=== PATIENT | female | born 1955 | race Caucasian/White ===

== ENCOUNTER 2020-03-16 10:15 | Observation (INO) | payer MEDICARE, SELFPAY ==
[2020-03-15 17:08] VITALS: BMI 28.0
[2020-03-16] VITALS (16 sets, daily range): BP systolic 91–138; BP diastolic 46–74; PULSE 73–114; RESP 14–18; TEMP 36.1–36.6; O2SAT 93–100
--- NOTE | 2020-03-16 06:13 | ANES.PREANE2 ---
Pre-Anesthetic Assessment Pre-Anesthetic Assessment: Height/Weight: Height 1.6 m Weight 71.668 kg Preop Diagnosis: Intervertebral disc disorder with myelopathy, midcervical Proposed Procedure: Operation Date: 03/16/20 07:00 Proposed Procedures p Anterior Cervical Discecotmy&Fusion 2Lev C3-C4 C5-C6 69235 M50.020(Not Applicable) - Doug Robin MD Was Beta Yuridia taken within 24 hours: N/A Last intake: Intake Last Liquid Date 03/15/20 Last Liquid Time 22:00 Last Solid Date 03/15/20 Last Solid Time 19:00 Social: Social History: No alcohol and No tobacco Exam: Pre-Anes Outpt Exam: alert, oriented x 3, clear to auscultation bilaterally and regular rate & rhythm Airway: Submandibular: WNL Cervical ROM: WNL MP: 2 Dentition: Chipped Additional comments: glidescope History/ROS: No significant history except as noted Anesthetic Plan: ASA status: 2 Anesthesia: Anesthesia Evaluation and General Risk of > 500 ml blood loss (7ml/kg in children): Yes, adequate IV access and fluids planned PFSH Anesthesia PFSH: Social History (Updated 01/17/20 @ 11:48 by Shannon Santos LPN) Smoking and tobacco status: never smoked Alcohol intake: never Lives independently: Yes Household members: spouse Marital status: Current occupational status: disabled Data Anesthesia Cardiac Studies: No Data to Display
[2020-03-16] MEDS: sodium chloride 0.9% 1,000 ML 30 ML IV (06:28)
--- NOTE | 2020-03-16 06:52 | W.PM.OPSUD ---
Surgery/Procedure H&P Update DATE OF PROCEDURE: March 16, 2020 DATE H&P PERFORMED: 03/15/20 H&P UPDATE INFORMATION: I have reviewed H&P completed within last 30 days and H&P to be scanned into chart PREOP DIAGNOSIS: Intervertebral disc disorder with myelopathy, midcervical PRIMARY INDICATION FOR PROCEDURE: Pain PLANNED PROCEDURE: Operation Date: 03/16/20 07:00 Proposed Procedures Anterior Cervical Discectomy/Fusion/Fixation, C3-C4 and C5-C6 71283 M50.020(Not Applicable) - Doug Robin MD
--- NOTE | 2020-03-16 07:04 | PM.OP2 ---
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
--- NOTE | 2020-03-16 07:16 | XR_ITS ---
WS: [id number] XR cervical spine 1Vport [id number] REASON FOR EXAM: SURGERY FINDINGS: Intraoperative a pointer is seen directed toward the C3-4 level anteriorly. Endotracheal tu be is seen in good position. XR/XR cervical spine 1Vport [id number] IMPRESSION: Anterior pointers directed toward the C3-4 level anteriorly.
[2020-03-16] MEDS: thrombin 5,000 unit SDV 5000 UNIT XX (07:45)
--- NOTE | 2020-03-16 07:48 | XR_ITS ---
WS: [id number] XR cervical spine 1Vport [id number] REASON FOR EXAM: SURGERY FINDINGS: Intraoperative a pointer seen in the disc space C4-C5. Satisfactory position. XR/XR cervical spine 1Vport [id number] IMPRESSION: Localization C4-C5 anterior disc space.
--- NOTE | 2020-03-16 08:58 | SUR.OPER ---
Family Notified Of Patient's Status Via Phone.
--- NOTE | 2020-03-16 10:08 | XR_ITS ---
WS: [id number] XR cervical spine 3V* [id number] REASON FOR EXAM: AP/LAT Post op Fusion FINDINGS: Postop evaluation shows anterior fusion with a plate extending from the C3-C4-C5 level with intraspinal fusion satisfactory alignment. XR/XR cervical spine 3V* [id number] IMPRESSION: Satisfactory anterior fusion C3-C4-C5 with intraspinal fusion.
[2020-03-16] MEDS: ondansetron 2 mg/ML SDV 2 mL 4 MG IVP (11:19)
[2020-03-16] MEDS: lactated ringers 1,000 ML 90 ML IV (13:39)
--- NOTE | 2020-03-16 15:31 | P.OP_ITS ---
Operative Report Date of procedure: March 16, 2020 Pre-op Diagnosis: Intervertebral disc disorder with myelopathy, midcervical Pre-op Diagnosis: Spondylolisthesis Post-op diagnosis: same (with instability of joint) Procedure Done: C3-C4, C4-C5 anterior cervical discectomy with osteophytectomy. C3-C4, C4-C5 anterior cervical plate/screw fixation. C3-C4, C4-C5 placement of intervertebral prosthetic devices. C3-C4, C4-C5 anterior cervical fusion utilizing morselized autograft. Implants: Synthes Vectra plate/screw system. DePuy Synthes ACIS ProTi Spacers. [place] King moldable demineralized fibers. Specimens removed/disposition: C3-C4, C4-C5 disc. Pathology: Disc fragments Surgeon: Doug Robin Anesthesia: General Estimated blood loss (mL): 50 IV fluids (mL): 1,300 Urine output (mL): 50 Complications: None Condition: stable Disposition: PACU Brief History: The patient is a 64-year-old female with symptomatic, radiographically confirmed cervical disc/joint disease, spondylolisthesis, and associated neural impingement. Imaging studies demonstrated dominant abnormalities at C3-C4 and C4-C5. Conservative management did not provide adequate lasting symptom relief. After review of the diagnostic and treatment options with the risks/potential benefits/rationale for each, the patient requested to proceed with surgical intervention. Procedure: After routine preoperative evaluation and informed consent were obtained, the patient was taken to the Operating Room and placed under general endotracheal anesthesia. She was positioned supine and fit in the [place] tongs for the application of in-line cervical traction. The anterolateral neck on the left was prepared with hair clippers. A proposed transverse skin incision was marked with a sterile skin marker, utilizing intraoperative radiography and regional anatomy for localization. The area was scrubbed with Betadine, prepped with DuraPrep, and draped with sterile towels and drapes. [place] surgical barrier was applied. The proposed incision site was infiltrated with 1% Xylocaine with Epinephrine. A skin incision was made and carried down into the subcutaneous tissues. The platysma was identified and divided in the direction of its fibers. A plane was dissected just medial to the carotid sheath and lateral to the midline esophagus and trachea. Prevertebral soft tissues were bluntly dissected free of the anterior margin of the cervical spine. Longus coli muscles were freed from their medial attachments. Deep self-retaining retractors were placed. Intraoperative radiography verified the desired surgical levels. The C3-C4 and C4-C5 interspaces were sequentially incised with a #11 blade. Discectomies were accomplished utilizing various curettes and pituitary rongeurs. Anterior marginal osteophytes were resected with the [place] and [place] rongeurs. Cartilaginous end plates were stripped free with curettes. Posterior marginal osteophytes were resected with thin foot plate Kerrison rongeurs. The medial aspects of the neural foramina were enlarged in a similar manner. Posterior longitudinal ligament was divided and resected as necessary to further the decompression. Due to collapse/extensive bony overgrowth of the C3-C4 disc space and marginal osteophyte contribution to neural impingement, the Via6 high- speed drill with serina margarito was utilized for endplate preparation and to complete the osteophytectomy portions of the procedure. Once the decompressions were felt to be adequate at both levels, the disc spaces were sized. An 8 mm ACIS ProTi lordotic/medium Spacer was chosen for C3-C4. A 7 mm ACIS ProTi lordotic/medium Spacer was chosen for C4-C5. The Spacers were packed with morselized autograft obtained from the osteophytectomy portions of the procedure augmented with Eureka King moldable demineralized fibers. The Spacers were sequentially placed within the C3-C4 and C4-C5 interspaces while in-line cervical traction was applied via the [place] tongs. Once the Spacers were felt to be in good position, a Synthes Vectra plate of the desired size was chosen. The plate was bent to match the curvature of the patient's cervical spine utilizing the plate mahoney. The plate was secured to the C3, C4 and C5 vertebral bodies with bilateral 4 mm x 14 mm self-drilling screws. Final screw tightening was performed, and the locking mechanisms within the plate were noted to engage the screws at each site. The construct was inspected and felt to be in good position and secure. The wound was copiously irrigated with sterile saline and antibiotic irrigation. Hemostasis was ensured with the bipolar electrocautery. Wound closure was performed in multiple layers with 2-0 Vicryl Plus simple interrupted closure of the platysma and deep dermis as separate layers. Final skin closure was performed with 4-0 Vicryl Plus in a running subcuticular pattern. Steri-Strips were applied, and a sterile dressing was placed. The patient was released from the [facility] and fit in a [place] collar. She was transferred onto the Recovery Room cart in the supine position. She was extubated without incident. The patient tolerated the procedure well. All sponge, needle, and instrument counts were correct at the completion of the procedure.
[2020-03-16] MEDS: docusate sodium 100 mg Capsule PO (17:24)
[2020-03-16] MEDS: gabapentin 300 mg Capsule PO (17:24)
--- NOTE | 2020-03-16 20:07 | PM.DCS ---
Discharge Providers Date of Admission: 03/16/20 10:15 Date of Discharge: March 16, 2020 Attending Provider at Admission: Doug Robin MD Attending Provider at Discharge: Doug Robin MD Primary Care Provider: Chuck Artis NP Diagnoses at Discharge Discharge Diagnosis (1) Cervical disc disorder with myelopathy of mid-cervical region: Status: Chronic (2) Spondylolisthesis, cervical region: Status: Chronic (3) Instability of joint: Status: Acute Reason for Visit Reason for Visit: Reason For Visit: ACDFF Brief History: The patient is a 64-year-old female with symptomatic, radiographically confirmed cervical disc/joint disease, spondylolisthesis, and associated neural impingement. Imaging studies demonstrated dominant abnormalities at C3-C4 and C4-C5. Conservative management did not provide adequate lasting symptom relief. After review of the diagnostic and treatment options with the risks/potential benefits/rationale for each, the patient requested to proceed with surgical intervention. Hospital Course Hospital Course: The patient underwent a C3-C5 ACDFF on 03/16/2020. She tolerated the procedure well. She completed preoperative and postoperative intravenous antibiotic doses, and the physical therapy postoperative spine protocol. She was ambulatory, voiding, and tolerating regular diet prior to discharge home in the evening of the date of surgery. Discharge Summary: Physical Exam Const: COMMON NORMALS: no apparent distress and well nourished GENERAL APPEARANCE: cooperative and comfortable Neck/C-Spine: COMMON NORMALS: supple and no JVD GENERAL: Yes trachea midline CERVICAL SPINE: Yes collar present Resp: COMMON NORMALS: normal respiratory effort EFFORT & INSPECTION: Yes able to speak in complete sentences, No abnormal respiratory pattern and No tachypneic Cardio: COMMON NORMALS: no JVD Extremity: COMMON NORMALS: no clubbing, cyanosis or edema Neuro: COMMON NORMALS: moves all extremities MOTOR EXAM: strength 5/5 throughout (bilateral upper extremities) Psych: COMMON NORMALS: mental status grossly normal ATTITUDE: Yes calm and Yes engaged ACTIVITY/MOTOR BEHAVIOR: Yes appropriate eye contact MOOD & AFFECT: Yes euthymic mood INSIGHT: insight good JUDGEMENT: judgment good Urinary Catheter Management^: F: Cath Placed During This Visit: yes, but has since been removed by the nurse Urinary Catheter Date of Insertion: 03/16/20 Urinary Catheter Time of Insertion: 07:15 Date Urinary Catheter Removed: 03/16/20 Time Urinary Catheter Discontinued: 10:06 Discharge Data Data Completed and Pending: Completed Studies During Hospitalization Category Date Time Status XR cervical spine 1 view portable [ XR cervical spine Exams 03/16/20 07:16 Completed 1Vport [id number]] Rou josie XR cervical spine 1 view portable [ XR cervical spine Exams 03/16/20 07:48 Completed 1Vport [id number]] Rou josie XR cervical spine 3V* [id number] Routine Exams 03/16/20 10:08 Completed Pending at discharge Category Date Time Status Pathology: Surgic al [PTH] Routine Pth 03/16/20 10:12 Received Imaging^: Other Xray: Radiologist's impression: C-spine x-rays- IMPRESSION: Satisfactory anterior fusion C3-C4-C5 with intraspinal fusion. Procedures Performed: C3-C4, C4-C5 anterior cervical discectomy/fusion/fixation. Intravenous antibiotics. Physical therapy. Vitals: Last Vital Signs Temp 97.9 F 03/16/20 15:01 Pulse 80 03/16/20 18:32 Resp 16 03/16/20 16:20 BP 125/73 03/16/20 15:01 Pulse Ox 95 03/16/20 16:20 Discharge Plan Discharge Patient Disposition: Home, Self-Care Condition: Stable Prescriptions: [place] 7.5-325 mg tablet 1 tab PO Q4H PRN (Reason: pain) Qty: 25 RF: 0 Continued amlodipine-benazepril 10-20 mg capsule 1 cap PO DAILY RF: 0 losartan 100 mg tablet 100 mg PO DAILY RF: 0 gabapentin 300 mg capsule 300 mg PO BID RF: 0 Discharge Orders: Discharge Order (Routine); Ordered 03/16/20 Ordered By: Doug Robin Referrals: Doug Robin MD [Physician] - 03/30/20 9:30 am Discharge Diet: Advance as tolerated Discharge Activity: Limit activity as instructed and As per PT/OT instructions Patient Instructions: Hydrocodone/Acetaminophen (By mouth), Anterior Cervical Discectomy (DC), Anterior Posterior Spinal Fusion (DC) Activity Restrictions/Additional Instructions: Activity -Cervical fusion: Wear cervical collar 24 hours a day. Change as necessary for showering, shaving, or if it becomes soiled. -No lifting or reaching overhead. - No driving until office followup visit - No lifting/pushing/pulling over 10 pounds - Avoid twisting or bending - Walking is encouraged - Home exercise per physical therapist - You may engage in sexual intercourse at any time as long as it is comfortable for you - Check with your doctor before returning to work. Notify your doctor if you develop: - temperature of 101.5 degrees F. or higher - redness or swelling of the incision - Foul drainage - increasing pain - increasing numbness or tingling in the arms or legs - New or increasing problems with vision, balance, memory, speaking, nausea or vomiting Hygiene: - Showering is okay - No tub baths or soaking Other: Remove outer bandage 3 days after surgery. If you have paper strips, leave in place until they fall off on their own. If you have stitches, keep your incision dry until the stitches are removed. Your doctor's office is available to answer any questions from 7 AM to 5:00 PM, Friday through at [phone]. After hours, go to the emergency room at [facility] or call 911 for assistance. 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
== END 2020-03-16 18:33 | disposition home or self-care (01) ==
LOC: MEDSURG 10:19
PROVIDERS: Admitting Provider Specialist; PCP Nurse Practitioner Family; Visit Provider Specialist
PROC: 0RB30ZZ Excision of Cervical Vertebral Disc, Open Approach (ICD-10-PCS; CPT 22551; principal; 2020-03-16 07:00)
DX: M50.01 Cervical disc disorder with myelopathy, high cervical region (principal); M53.2X2 Spinal instabilities, cervical region; M43.12 Spondylolisthesis, cervical region
CPT/HCPCS: 22551; 22552; 22853 ×2; 12345; 51702; 72020; 72040; 88304; 96365; 96375; 97110; 97161; C1713; G0378; J0131; J0690; J2001; J2250; J2370; J2405; J2704; J2710; J3010; J3490; J7030; L0172; L0174

== ENCOUNTER 2020-03-30 13:58 | Outpatient (CLI) | payer MEDICARE, SELFPAY ==
--- NOTE | 2020-03-30 14:09 | XR_ITS ---
WS: [id number] CERVICAL SPINE 2 VIEW HISTORY: s/p cervical spinal fusion. COMPARISON: 03/16/2020 Anterior cervical fusion at C3-C5. Interbody spacers at C3-4 and C4-5. Hardware and interbody spacer remains in good position with no interval change. No subsidence. Advanced degenerative disc disease at C5-6 and C6-7. No fractures. XR/XR cervical spine 3V* [id number] IMPRESSION: Anterior cervical fusion at C3-C5 with no complications.
== END 2020-03-30 13:59 | disposition home or self-care (01) ==
LOC: RADWPI 14:03
PROVIDERS: PCP Nurse Practitioner Family; Visit Provider Licensed Practical Nurse
DX: Z98.1 Arthrodesis status (principal); M43.22 Fusion of spine, cervical region
CPT/HCPCS: 72040

== ENCOUNTER 2020-04-27 10:36 | Outpatient (CLI) | payer MEDICARE, SELFPAY ==
--- NOTE | 2020-04-27 10:30 | XR_ITS ---
WS: [id number] XR cervical spine 3V* [id number] REASON FOR EXAM: s/p cervical spinal fusion FINDINGS: Anterior fusion changes C3-C4-C5 with intraspinal fusion satisfactory. There is spurring po steriorly off the C5 and C6 vertebra . Degenerated disc changes C6-C7. XR/XR cervical spine 3V* [id number] IMPRESSION: Stable anterior fusion C3-C4-C5 Cervical spondylosis C5 and C6 Degenerated disc changes C6-7
== END 2020-04-27 10:37 | disposition home or self-care (01) ==
LOC: RADWPI 10:39
PROVIDERS: PCP Nurse Practitioner Family; Visit Provider Licensed Practical Nurse
DX: Z98.1 Arthrodesis status (principal); M43.22 Fusion of spine, cervical region; M47.812 Spondylosis without myelopathy or radiculopathy, cervical region
CPT/HCPCS: 72040

== ENCOUNTER 2020-05-10 14:46 | Outpatient (CLI) | payer MEDICARE, SELFPAY ==
--- NOTE | 2020-05-10 15:00 | CT_ITS ---
WS: [id number] CT CERVICAL SPINE HISTORY: s/p cervical spinal fusion TECHNIQUE: Contiguous 2.5 mm axial imaging performed through the entire cervical spine. Sagittal and coronal reformats also performed. All CT scans at [facility] use at least one of these do se optimization techniques: automated exposure control; mA and/or kV adjustment per patient size (inc ludes targeted exams where dose is matched to clinical indication); or iterative reconstruction. DLP: 1006.80 mGy-cm. COMPARISON: 09/24/2019 and 04/27/2020 Straightening of the normal cervical lordosis. Anterior cervical fusion plate and screws and interbod y spacers from C3 through C5. C3-4 and C4-5 interbody spacers with the disc heights being restored. N o lucency around the hardware. C2-C3: Shallow central disc protrusion. C3-C4: Osteophytic ridging with mild bilateral foraminal stenosis. C4-C5: Osteophytic ridging with mild LEFT foraminal stenosis. C5-C6: Osteophytic ridging with mild bilateral foraminal stenosis. C6-C7: Osteophytic ridging with mild RIGHT and moderate LEFT foraminal stenosis. C7-T1: Normal. Soft tissues are normal. Lung apices are clear. CT/CT cervical spin wo con* [id number] IMPRESSION: 1. Status post anterior cervical fusion with interbody spacers from C3 through C5. No postsurgical abnormality identified. 2. Multilevel mild to moderate foraminal stenosis as above. Most significant s tenosis on the LEFT at C6-7.
== END 2020-05-10 14:47 | disposition home or self-care (01) ==
LOC: RADWPI 14:48
PROVIDERS: Family Provider Nurse Practitioner Family; PCP Nurse Practitioner Family; Visit Provider Licensed Practical Nurse
DX: Z98.1 Arthrodesis status (principal); M48.02 Spinal stenosis, cervical region; M43.22 Fusion of spine, cervical region
CPT/HCPCS: 72125

== ENCOUNTER 2022-06-28 10:31 | Emergency (ER) | payer MEDICARE, SELFPAY ==
[2022-06-28] VITALS (7 sets, daily range): BP systolic 112–148; BP diastolic 68–92; PULSE 66–85; RESP 16–21; TEMP 37–37.8; O2SAT 94–97; BMI 26.2
--- NOTE | 2022-06-28 11:09 | PC.NURSE ---
Called from waiting room to be triaged, no answer.
--- NOTE | 2022-06-28 11:18 | ECG_ITS ---
[facility] Test Date: 2022-06-28 Pat Name: Chela Winston Department: Room: Gender: Female Radiology Aide: : 1955 Requested By: Jake Bain Order Number: [id number] Martin MD: Stefano Booker M.D. Measurements Intervals [place] Rate: 84 P: 68 AL: 144 QRS: 56 QRSD: 82 T: 52 QT: 351 QTc: 416 Interpretive Statements SINUS RHYTHM SEPTAL MYOCARDIAL INFARCTION , PROBABLY OLD [40+ ms Q WAVE IN V1/V2] Compared to ECG 09/23/2018 13:24:02 Myocardial infarct finding now present Electronically Signed On 06-28-2022 17:45:14 CDT by Stefano Booker M.D. [id number]
--- NOTE | 2022-06-28 11:22 | XRR_ITS ---
PROCEDURE INFORMATION: Exam: XR Chest Exam date and time: 06/28/2022 12:06 PM Age: 66 years old Clinical indication: Pain; Angina pectoris; Additional info: Chest pain TECHNIQUE: Imaging protocol: Radiologic exam of the chest. Views: 1 view. COMPARISON: CR Chest 2 views* [id number] 03/26/2019 9:36 PM FINDINGS: Lungs: Right lower lobe calcified granuloma. Pleural spaces: Unremarkable. No pleural effusion. No pneumothorax. Heart/Mediastinum: Unremarkable. No cardiomegaly. Bones/joints: Unremarkable. XR/XR chest 1V portable [id number] IMPRESSION: Right lower lobe calcified granuloma.
[2022-06-28 13:11] LABS: Basophils # 0.1 10^3/uL (0.0-0.1); Basophils % 0.8 %; Eosinophils % 0.3 %; Hemoglobin 13.9 g/dL (11.5-15.3); Lymphocytes % 12.5 %; Mean Corpuscular HGB Conc 32.3 g/dL (30.0-36.0); Mean Corpuscular Hemoglobin 29.7 pg (28.0-34.0); Mean Corpuscular Volume 91.9 fl (81-99); Mean Platelet Volume 10.1 fL (7.4-10.4); Monocytes # 0.8 10^3/uL (0.2-0.9); Monocytes % 9.9 %; Neutrophils # 6.06 10^3/uL (1.8-7.7); Neutrophils % 76.1 %; Nucleated Red Blood Cells % 0 %; Platelet Count 248 10^3/cmm (130-400); Red Blood Count 4.68 10^6/uL (4.1-5.3); Red Cell Distribution Width 13.2 % (12.1-15.1)
[2022-06-28 13:28] LABS: Alanine Aminotransferase 9 U/L (0-33); Albumin Level 4.4 g/dL (3.5-5.2); Alkaline Phosphatase 97 U/L (35-105); Anion Gap 16.3 (5-19); Aspartate Amino Transferase 15 U/L (0-32); Blood Urea Nitrogen 17 mg/dL (8-23); Calcium 9.3 mg/dL (8.5-10.5); Carbon Dioxide 27 mmol/L (22-29); Chloride 98 mmol/L (98-107); Glomerular Filtration Rate 83.5 mL/min (90-130); Glucose 90 mg/dL (65-115); Osmolality Calculated 285 mOsm/kg (285-295); Potassium 4.3 mmol/L (3.5-5.1); Sodium 137 mmol/L (136-145); Total Bilirubin 0.4 mg/dL (0.15-1.2); Total Protein 7.4 g/dL (6.6-8.7)
[2022-06-28 13:41] LABS: Troponin(5th) Baseline 7 ng/L (0-10)
--- NOTE | 2022-06-28 17:33 | USR_ITS ---
PROCEDURE INFORMATION: Exam: US Duplex Right Lower Extremity Veins, Limited Exam date and time: 06/28/2022 5:51 PM Age: 66 years old Clinical indication: Pain; Leg, lower; Right; Additional info: Right calf pain and tenderness TECHNIQUE: Imaging protocol: Real-time Duplex ultrasound of the Right Lower Extremity with 2-D boggs scale, color Doppler flow and spectral waveform analysis with image documentation. Limited exam was focused on the right lower extremity veins. COMPARISON: CT chest abd pel w con* 09/23/2018 8:28 AM FINDINGS: Right deep veins: Unremarkable. The common femoral, femoral, proximal profunda femoral, popliteal, posterior tibial and peroneal veins are patent without thrombus. Normal Doppler waveforms. Normal compressibility and/or augmentation response. Right superficial veins: Unremarkable. Saphenofemoral junction is patent without thrombus. Soft tissues: Unremarkable. US/[place] [id number] IMPRESSION: No sonographic evidence of deep vein thrombosis.
--- NOTE | 2022-06-28 17:34 | ED_ITS ---
Documented by User: ULISES Smyth 06/29/22 23:00 HPI - Chest Pain General: Chief Complaint: Chest Pain Stated Complaint: irregular ekg Time Seen by Provider: 06/28/22 17:24 History of Present Illness: Pt is a 66-year-old female comes to the ED with chest pain. Chest pain started last night while she was laying down going to bed. She describes the chest pain as an aching pain was in her upper left chest and radiated into her left shoulder. She endorsed having a little bit of nausea but denies any diaphoresis or vomiting. Symptoms improved if she applied pressure on left side of chest with her hand. Patient fell asleep and woke up and she was still having the same chest pain this morning. She went and saw her PCP this morning. She was still having some left chest pain so PCP sent her here to the ED to be evaluated. Patient says her chest pain resolved before she got here to the ED. She does not have any current chest pain, shortness of breath or palpitations. She also reports having some right calf pain that started several weeks ago and has not improved. Denies any known injury or trauma to cause right calf pain. Patient is not on any blood thinners. Her PCP told her to come here to the ED to get her right leg checked for blood clot as well. She is also complaining of having a pruritic rash on her right foot that is been going on now for several weeks. She has tried using athlete's foot antifungal treatment and it has not helped rash. Associated symptoms: Deny abdominal pain, dyspnea, fever(s), nausea, palpitations or vomiting Review of Systems Const: Denies: fever(s), chills or fatigue Eyes: Denies: change in vision or eye discomfort ENMT: Denies: throat pain, odynophagia, nasal discharge or nasal congestion Card: Reports: chest pain (Resolved before coming to the ED.); Denies: palpitations, edema, swelling of feet/ankles, dyspnea on exertion or orthopnea Resp: Denies: dyspnea, productive cough or non-productive cough GI: Denies: abdominal pain, nausea, vomiting, diarrhea, constipation or hematochezia : Denies: flank pain, dysuria or hematuria Musc: Reports: extremity pain (Right calf pain); Denies: neck pain, back pain or extremity swelling Skin/Breast: Reports: rash (Pruritic rash on right foot); Denies: new lesions Neuro: Denies: headache(s), numbness in extremities or weakness in extremities PFSH ED PFSH: Medical History Polyneuropathy, peripheral sensorimotor axonal Post-operative state Surgical History History of spinal surgery 03/16/[address] Robin. C3-C4, C4-C5 ACDFF Social History Smoking and tobacco status: never smoked Alcohol intake: never Lives independently: Yes Household members: spouse Marital status: Current occupational status: disabled Physical Exam Const: COMMON NORMALS: no acute distress, patient oriented x3 and alert GENERAL APPEARANCE: cooperative and comfortable HENMT: COMMON NORMALS: normocephalic HEAD & SCALP: normocephalic MOUTH: Normal oral and palatal mucosa present THROAT: posterior oropharynx normal and uvula midline Neck/C-Spine: COMMON NORMALS: supple GENERAL: Yes normal visual inspection Resp: COMMON NORMALS: normal respiratory effort, No retractions, No use of accessory muscles and clear to auscultation bilaterally AUSCULTATION: clear to auscultation bilaterally Cardio: COMMON NORMALS: regular rate, regular rhythm, S1 normal heart sound present, S2 normal heart sound present, No gallops present (Cardio), No clicks present (Cardio), No murmurs present (Cardio) and Peripheral pulses 2+ throughout RATE: regular rate RHYTHM: regular rhythm HEART SOUNDS: S1 normal heart sound present and S2 normal heart sound present PERIPHERAL PULSES: Peripheral pulses 2+ throughout GI: COMMON NORMALS: Normal to inspection, nondistended, normoactive bowel sounds present, Soft to palpation, non-tender and no masses PALPATION: Yes Soft to palpation : COMMON NORMALS: Yes no CVA tenderness BLADDER/KIDNEY EXAM: Yes no CVA tenderness Back/Pelvis: COMMON NORMALS: no CVA tenderness Extremity: COMMON NORMALS: normal to inspection and no pedal edema NARRATIVE EXTREMITY EXAM: Patient has pruritic rash on right midfoot and the skin looks dry and scaly. GENERAL: Yes calf tenderness (Right calf) Neuro: COMMON NORMALS: patient oriented x3 SENSORIUM/ORIENTATION: Yes alert GAIT: Yes Normal gait present Skin: GENERAL SKIN EXAM: dry skin Course Vital Signs: Vital signs: Vital Signs Temperature 98.8 F 06/28/22 16:50 Pulse Rate 67 06/28/22 19:11 Respiratory Rate 18 06/28/22 19:11 Blood Pressure 131/77 06/28/22 19:11 Pulse Oximetry 96 06/28/22 19:11 Oxygen Delivery Me thod 06/28/22 11:16 MDM - Chest Pain Medical Decision Making Patient is a 66-year-old female comes to the ED with episode of chest pain today. Chest pain resolved before coming to the ED. She endorses having some right lower leg pain has been going on for over a week and her PCP wanted her to come here to get checked for blood clot. Vitals are stable and patient appears in no acute distress or pain. She has some right calf tenderness upon palpation but no edema right lower leg. Patient also had a pruritic rash on right foot. No signs of cellulitis noted. Rest of exam is benign. Chest x-ray showed right lower lobe calcified granuloma. CBC, CMP were unremarkable. Troponins negative. EKG showed no acute findings. Venous duplex of right lower extremity showed no DVT. I placed an order with case management for patient to be set up with sestamibi cardiac stress test and a referral to Dr. Guerra for follow-up on right lung granuloma. She was stable for discharge home. Strict return to ED precautions given. She was sent home with a prescription for some triamcinolone cream for her rash on her foot. Told to follow-up with PCP in the next week for reevaluation. She was informed that corrections caseworker will be contacting you next several days set up an appointment with Dr. Guerra and to set up a cardiac stress test. Patient was done agree with plan. Lab Data I reviewed the patient's lab results. : 06/28/22 13:02 06/28/22 13:02 Radiology Impressions Chest X-Ray 06/28/22 11:22 IMPRESSION: Right lower lobe calcified granuloma. Venous Duplex 06/28/22 17:33 IMPRESSION: No sonographic evidence of deep vein thrombosis. Laboratory Results WBC 8.0 10^3/uL (4.0-10.0) 06/28/22 13:02 RBC 4.68 10^6/uL (4.1-5.3) 06/28/22 13:02 Hgb 13.9 g/dL (11.5-15.3) 06/28/22 13:02 Hct 43.0 % (37.0-47.0) 06/28/22 13:02 MCV 91.9 fl (81-99) 06/28/22 13:02 MCH 29.7 pg (28.0-34.0) 06/28/22 13:02 MCHC 32.3 g/dL (30.0-36.0) 06/28/22 13:02 RDW 13.2 % (12.1-15.1) 06/28/22 13:02 Plt Count 248 10^3/cmm (130-400) 06/28/22 13:02 MPV 10.1 fL (7.4-10.4) 06/28/22 13:02 Neut % (Auto) 76.1 % 06/28/22 13:02 Lymph % (Auto) 12.5 % 06/28/22 13:02 [place] % (Auto) 9.9 % 06/28/22 13:02 Eos % (Auto) 0.3 % 06/28/22 13:02 Baso % (Auto) 0.8 % 06/28/22 13:02 Neut # (Auto) 6.06 10^3/uL (1.8-7.7) 06/28/22 13:02 Lymph # (Auto) 1.0 10^3/uL (0.8-4.8) 06/28/22 13:02 [place] # (Auto) 0.8 10^3/uL (0.2-0.9) 06/28/22 13:02 Eos # (Auto) 0.0 10^3/uL (0.0-0.8) 06/28/22 13:02 Baso # (Auto) 0.1 10^3/uL (0.0-0.1) 06/28/22 13:02 Nucleated RBC % (auto) 0 % 06/28/22 13:02 Nucleated RBCs # 0.0 /100WBC 06/28/22 13:02 Sodium 137 mmol/L (136-145) 06/28/22 13:02 Potassium 4.3 mmol/L (3.5-5.1) 06/28/22 13:02 Chloride 98 mmol/L (98-107) 06/28/22 13:02 Carbon Dioxide 27 mmol/L (22-29) 06/28/22 13:02 Anion Gap 16.3 (5-19) 06/28/22 13:02 BUN 17 mg/dL (8-23) 06/28/22 13:02 Creatinine 0.7 mg/dL (0.5-0.9) 06/28/22 13:02 GFR Calculation 83.5 mL/min (90-130) L 06/28/22 13:02 Glucose 90 mg/dL (65-115) 06/28/22 13:02 Calculated Osmolality 285 mOsm/kg (285-295) 06/28/22 13:02 Calcium 9.3 mg/dL (8.5-10.5) 06/28/22 13:02 Total Bilirubin 0.4 mg/dL (0.15-1.2) 06/28/22 13:02 AST 15 U/L (0-32) 06/28/22 13:02 ALT 9 U/L (0-33) 06/28/22 13:02 Alkaline Phosphatase 97 U/L (35-105) 06/28/22 13:02 Troponin T Baseline 7 ng/L (0-10) 06/28/22 13:02 Troponin T 120 Minute 8.90 ng/L (0-10) 06/28/22 14:55 Delta Troponin T 1.90 ABS# (0-10) 06/28/22 14:55 Troponin T Hi Sens 6Hr 6.34 ng/L (0-10) 06/28/22 18:43 Troponin T Hi Sens 6Hr Delta -0.66 ng/L (0-12) L 06/28/22 18:43 Total Protein 7.4 g/dL (6.6-8.7) 06/28/22 13:02 Albumin 4.4 g/dL (3.5-5.2) 06/28/22 13:02 Globulin 3.0 g/dL (1.3-4.6) 06/28/22 13:02 EKG Data EKG 1: EKG interpretation date: 06/28/22 Interpretation: Sinus rhythm, 84 bpm, no ST segment elevation or depression seen. Dr. Foster reviewed EKG as well and saw no acute findings. Discharge Plan Discharge Patient Disposition: Home Clinical Impression: Calcified granuloma of lung, Rash of foot Chest pain Qualifiers: Chest pain type: unspecified Qualified Code(s): R07.9 - Chest pain, unspecified Condition: Stable Prescriptions: New triamcinolone acetonide 0.1 % cream 1 applic topical BID PRN (Reason: rash) Qty: 30 0RF No Action amlodipine-benazepril 10-20 mg capsule 1 cap PO DAILY losartan 100 mg tablet 100 mg PO DAILY gabapentin 300 mg capsule 300 mg PO BID [place] 7.5-325 mg tablet 1 tab PO Q4H PRN (Reason: pain) Qty: 25 0RF Discharge Orders: Discharge ED (Routine); Ordered 06/28/22 Ordered By: Chris Allen Referrals: Chuck Artis NP [Primary Care Provider] - Discharge Diet: Regular Discharge Activity: Increase activity as tolerated Patient Instructions: Chest Pain (DC) Activity Restrictions/Additional Instructions: Follow-up with medical provider as directed. Case management will be contacting you to get you set up with an appointment with Dr. Guerra for follow-up on lung granuloma and also to get you set up with an outpatient cardiac stress test. take medications as prescribed. Continue taking all home medications as previously prescribed. Return to the ER or your medical provider if condition worsens. Please read and understand discharge instructions. Thank you for choosing [facility] for your healthcare needs today. Please realize this is an emergency room and that we are providing you with a medical screening exam and this may not be complete and all inclusive of all the testing and or work up that you may need to determine your ailment or severity of your illness. It is very important that you follow up as instructed or that you return to the Emergency Department should you have concerns or if your condition changes or worsens in any way. Coding Level of Care Code ED Tradem[employer] Paralegal for Chg Fwd Exam Comprehensive Documented by User: Álvaro Foster, 06/30/22 04:31 HPI - Chest Pain General: Chief Complaint: Chest Pain Stated Complaint: irregular ekg Time Seen by Provider: 06/28/22 17:24 [facility] ED [facility]: Medical History Polyneuropathy, peripheral sensorimotor axonal Post-operative state Surgical History History of spinal surgery 03/16/[address] Robin. C3-C4, C4-C5 ACDFF Social History Smoking and tobacco status: never smoked Alcohol intake: never Lives independently: Yes Household members: spouse Marital status: Current occupational status: disabled Course Vital Signs: Vital signs: Vital Signs Temperature 98.8 F 06/28/22 16:50 Pulse Rate 67 06/28/22 19:11 Respiratory Rate 18 06/28/22 19:11 Blood Pressure 131/77 06/28/22 19:11 Pulse Oximetry 96 06/28/22 19:11 Oxygen Delivery Me thod 06/28/22 11:16 MDM - Chest Pain Medical Decision Making Patient is a 66-year-old female comes to the ED with episode of chest pain today. Chest pain resolved before coming to the ED. She endorses having some right lower leg pain has been going on for over a week and her PCP wanted her to come here to get checked for blood clot. Vitals are stable and patient appears in no acute distress or pain. She has some right calf tenderness upon palpation but no edema right lower leg. Patient also had a pruritic rash on right foot. No signs of cellulitis noted. Rest of exam is benign. Chest x-ray showed right lower lobe calcified granuloma. CBC, CMP were unremarkable. Troponins negative. EKG showed no acute findings. Venous duplex of right lower extremity showed no DVT. I placed an order with case management for patient to be set up with sestamibi cardiac stress test and a referral to Dr. Guerra for follow-up on right lung granuloma. She was stable for discharge home. Strict return to ED precautions given. She was sent home with a prescription for some triamcinolone cream for her rash on her foot. Told to follow-up with PCP in the next week for reevaluation. She was informed that corrections caseworker will be contacting you next several days set up an appointment with Dr. Guerra and to set up a cardiac stress test. Patientagree with plan. This patient was originally seen by Mr. Alejandro PA-C.? I agree with his history, evaluation, and treatment. Lab Data : 06/28/22 13:02 06/28/22 13:02 Radiology Impressions Chest X-Ray 06/28/22 11:22 IMPRESSION: Right lower lobe calcified granuloma. Venous Duplex 06/28/22 17:33 IMPRESSION: No sonographic evidence of deep vein thrombosis. Laboratory Results WBC 8.0 10^3/uL (4.0-10.0) 06/28/22 13:02 RBC 4.68 10^6/uL (4.1-5.3) 06/28/22 13:02 Hgb 13.9 g/dL (11.5-15.3) 06/28/22 13:02 Hct 43.0 % (37.0-47.0) 06/28/22 13:02 MCV 91.9 fl (81-99) 06/28/22 13:02 MCH 29.7 pg (28.0-34.0) 06/28/22 13:02 MCHC 32.3 g/dL (30.0-36.0) 06/28/22 13:02 RDW 13.2 % (12.1-15.1) 06/28/22 13:02 Plt Count 248 10^3/cmm (130-400) 06/28/22 13:02 MPV 10.1 fL (7.4-10.4) 06/28/22 13:02 Neut % (Auto) 76.1 % 06/28/22 13:02 Lymph % (Auto) 12.5 % 06/28/22 13:02 [place] % (Auto) 9.9 % 06/28/22 13:02 Eos % (Auto) 0.3 % 06/28/22 13:02 Baso % (Auto) 0.8 % 06/28/22 13:02 Neut # (Auto) 6.06 10^3/uL (1.8-7.7) 06/28/22 13:02 Lymph # (Auto) 1.0 10^3/uL (0.8-4.8) 06/28/22 13:02 [place] # (Auto) 0.8 10^3/uL (0.2-0.9) 06/28/22 13:02 Eos # (Auto) 0.0 10^3/uL (0.0-0.8) 06/28/22 13:02 Baso # (Auto) 0.1 10^3/uL (0.0-0.1) 06/28/22 13:02 Nucleated RBC % (auto) 0 % 06/28/22 13:02 Nucleated RBCs # 0.0 /100WBC 06/28/22 13:02 Sodium 137 mmol/L (136-145) 06/28/22 13:02 Potassium 4.3 mmol/L (3.5-5.1) 06/28/22 13:02 Chloride 98 mmol/L (98-107) 06/28/22 13:02 Carbon Dioxide 27 mmol/L (22-29) 06/28/22 13:02 Anion Gap 16.3 (5-19) 06/28/22 13:02 BUN 17 mg/dL (8-23) 06/28/22 13:02 Creatinine 0.7 mg/dL (0.5-0.9) 06/28/22 13:02 GFR Calculation 83.5 mL/min (90-130) L 06/28/22 13:02 Glucose 90 mg/dL (65-115) 06/28/22 13:02 Calculated Osmolality 285 mOsm/kg (285-295) 06/28/22 13:02 Calcium 9.3 mg/dL (8.5-10.5) 06/28/22 13:02 Total Bilirubin 0.4 mg/dL (0.15-1.2) 06/28/22 13:02 AST 15 U/L (0-32) 06/28/22 13:02 ALT 9 U/L (0-33) 06/28/22 13:02 Alkaline Phosphatase 97 U/L (35-105) 06/28/22 13:02 Troponin T Baseline 7 ng/L (0-10) 06/28/22 13:02 Troponin T 120 Minute 8.90 ng/L (0-10) 06/28/22 14:55 Delta Troponin T 1.90 ABS# (0-10) 06/28/22 14:55 Troponin T Hi Sens 6Hr 6.34 ng/L (0-10) 06/28/22 18:43 Troponin T Hi Sens 6Hr Delta -0.66 ng/L (0-12) L 06/28/22 18:43 Total Protein 7.4 g/dL (6.6-8.7) 06/28/22 13:02 Albumin 4.4 g/dL (3.5-5.2) 06/28/22 13:02 Globulin 3.0 g/dL (1.3-4.6) 06/28/22 13:02 Discharge Plan Discharge Patient Disposition: Home Clinical Impression: Calcified granuloma of lung, Rash of foot Chest pain Qualifiers: Chest pain type: unspecified Qualified Code(s): R07.9 - Chest pain, unspecified Condition: Stable Prescriptions: New triamcinolone acetonide 0.1 % cream 1 applic topical BID PRN (Reason: rash) Qty: 30 0RF No Action amlodipine-benazepril 10-20 mg capsule 1 cap PO DAILY losartan 100 mg tablet 100 mg PO DAILY gabapentin 300 mg capsule 300 mg PO BID [place] 7.5-325 mg tablet 1 tab PO Q4H PRN (Reason: pain) Qty: 25 0RF Discharge Orders: Discharge ED (Routine); Ordered 06/28/22 Ordered By: Chris Allen Referrals: Chuck Artis NP [Primary Care Provider] - Discharge Diet: Regular Discharge Activity: Increase activity as tolerated Patient Instructions: Chest Pain (DC) Activity Restrictions/Additional Instructions: Follow-up with medical provider as directed. Case management will be contacting you to get you set up with an appointment with Dr. Guerra for follow-up on lung granuloma and also to get you set up with an outpatient cardiac stress test. take medications as prescribed. Continue taking all home medications as previously prescribed. Return to the ER or your medical provider if condition worsens. Please read and understand discharge instructions. Thank you for choosing [facility] for your healthcare needs today. Ana Maria miller realize this is an emergency room and that we are providing you with a medical screening exam and this may not be complete and all inclusive of all the testing and or work up that you may need to determine your ailment or severity of your illness. It is very important that you follow up as instructed or that you return to the Emergency Department should you have concerns or if your condition changes or worsens in any way. Coding Level of Care Code ED Tr[employer] Paralegal for Allen Fwd Exam Comprehensive
[2022-06-28 19:16] LABS: Troponin 5 6HR 6.34 ng/L (0-10)
[2022-06-28 19:23] LABS: Troponin 5 6HR Delta -0.66 ng/L (0-12)
--- NOTE | 2022-07-01 09:30 | DCPLANNER ---
Addendum entered by Zayra Hanna 07/12/22 08:33: Patient had an appointment scheduled, appointment was cancelled. Original Note: manager commodities had message to schedule a follow up appointment for patient with pulmonology. manager commodities sent patients information to the front office staff at [facility]. Patients information will be printed and reviewed. Clinic will call patient with appointment information.
--- NOTE | 2022-07-01 13:59 | DCPLANNER ---
Addendum entered by Zayra Hanna 11/19/22 13:11: Patient had a stress test scheduled - patient did attend appointment. Original Note: country manager had message to schedule an outpatient stress test for patient. country manager faxed signed order to centralized scheduling, who will call patient with appointment information.
== END 2022-06-28 19:13 | disposition home or self-care (01) ==
PROVIDERS: Emergency Medicine; Emergency Provider Physician Assistant; PCP Nurse Practitioner Family
DX: R07.9 Chest pain, unspecified (principal); J84.10 Pulmonary fibrosis, unspecified; R21 Rash and other nonspecific skin eruption
CPT/HCPCS: 36415; 71045; 80053; 84484; 85025; 93005; 93971; 99285

== ENCOUNTER 2022-10-07 09:58 | Outpatient (CLI) | payer MEDICARE, SELFPAY ==
--- NOTE | 2022-10-07 | ECG_ITS ---
[facility] Test Date: 2022-10-07 Pat Name: Chela Winston Department: Room: Gender: Female Fuel Technician: : 1955 Requested By: Chris Allen Order Number: [id number] Salazar MD: Marcia Shaffer M.D. Interpretive Statements NAME OF STUDY: LEXISCAN SESTAMIBI STRESS TEST INDICATION: Chest Pain PROCEDURE: At the baseline, the blood pressure was 140/64 mmHg with a heart rate of 73 bpm. The electrocardiogram showed sinus rhythm, possible old septal infarct. The Lexiscan was infused over a period of 20 seconds. A total of 0.4 milligrams of Lexiscan was infused. The stress phase was continued for a total of 5 minutes. Heart rate at the end of the stress phase was 92 bpm with a blood pressure of 126/65 mmHg. The EKG at the peak infusion revealed sinus rhythm with no significant ST-T wave changes. Sestamibi was injected 20 seconds after the Lexiscan infusion. Blood pressure at the end of the recovery phase was 126/63 mmHg with a heart rate of 87 beats per minute. CONCLUSION: 1. No significant EKG changes with the LexiScan infusion. 2. No LexiScan induced chest pain or cardiac arrhythmia. 3. Normal blood pressure and heart rate response. 4. Sestamibi/sestamibi perfusion scan pending; see separate report. Electronically Signed On 10-09-2022 12:18:03 OPTICAL COATING TECHNICIAN by Marcia Shaffer M.D. [email or web address]
--- NOTE | 2022-10-07 10:09 | NMCV_ITS ---
NM mer perf SPECT r/s* [id number] Chela Winston Age: 67 Gender: F : 1955 Exam Date: 10/07/2022 10:09 Ordering Phys: Chris Allen Technologist: EFREN Frederick Exam Location: [facility] Indications: CHEST PAIN STRESS TEST Please [facility] for [facility] IMAGE PROTOCOL Rest/Stress 1 Lexiscan Day Radiopharmaceutical Dose (mCi) Administration Site Administered by Rest: Tc-99m 10.0 IV EFREN Frederick Sestamibi Stress:Tc-99m 31.6 IV EFREN Cm Sestamibi Rest: 07-Oct-2022 60 Discovery 630 Stress: 07-Oct-2022 30 Discovery 630 0.4mg Lexiscan. Images obtained in supine and prone position. SPECT RESULTS Technical Quality: Excellent Raw Data Analysis: Normal Image Corrections: No attenuation or motion correction applied Summed Stress Score: 0 Summed Rest Score: 0 Summed Difference Score: 0 PERFUSION FINDINGS SPECT images demonstrate homogeneous tracer distribution throughout the myocardium. FUNCTIONAL RESULTS (calculated via Gated SPECT) Stress Image LV EF (%): 91 Stress EDV (mL):66 TID: 1.03 Stress ESV (mL):6 FUNCTIONAL FINDINGS: The left ventricle is normal in size. Transient Ischemia Dilatation of 1. There is hyperdynamic left ventricular global systolic function. The left ventricular ejection fraction is normal with a value of 91%. There is hyperdynamic left ventricular wall thickening. IMPRESSIONS 1. Myocardial perfusion imaging is normal. 2. Overall left ventricular systolic function is hyperdynamic without regional wall motion abnormalities,LVEF=91%. 3. EKG portion of the study will be reported separately. 4. Scan indicates low risk for cardiac events. Marcia Shaffer MD (Electronically Signed) Final Date: 09 October 2022 09:42 S
[2022-10-07 10:19] VITALS: BMI 26.0
[2022-10-07] MEDS: regadenoson 0.4 Mg/5 ml Syringe IVP (11:19)
[2022-10-07 13:17] VITALS: BP 126/63; PULSE 87
== END 2022-10-07 09:59 | disposition home or self-care (01) ==
LOC: CDL 10:00
PROVIDERS: PCP Nurse Practitioner Family; Visit Provider Physician Assistant
DX: R07.9 Chest pain, unspecified (principal)
CPT/HCPCS: 36415; 78452; 93017; 96374; A9500; J2785

== ENCOUNTER 2024-07-09 11:00 | Outpatient (CLI) | payer MEDICARE, SELFPAY ==
--- NOTE | 2024-07-09 11:10 | XR_ITS ---
WS: [email or web address] Exam: XR tibia fibula RT 2V [id number] Date/Time of Exam: 07/09/2024 11:23 AM Reason For Exam: RIGHT TIBIAL PAIN No fracture or dislocation. Soft tissues are unremarkable. Moderately severe DJD at the medial joint compartment of the knee. XR/XR tibia fibula RT 2V [id number] IMPRESSION: 1. Unremarkable tibia and fibula. 2. Marked DJD of the medial joint space of the knee.
--- NOTE | 2024-07-09 11:10 | XR_ITS ---
WS: [email or web address] Exam: XR knee LT 3V* [id number] Date/Time of Exam: 07/09/2024 11:23 AM Reason For Exam: BILATERAL KNEE JOINT PAIN>3 MONTHS Comparison 11/19/2013. There is moderate tricompartmental degenerative change of the LEFT knee most severe involving the med ial compartment. Medial marginal osteophytes are noted. Spurring of the posterior patella. Small effu bassam in the suprapatellar bursa. Soft tissues are unremarkable. No fracture. XR/XR knee LT 3V* [id number] IMPRESSION: 1. Moderately advanced tricompartmental DJD most severe involving the medial clair int compartment. Small joint effusion.
--- NOTE | 2024-07-09 11:10 | XR_ITS ---
WS: [email or web address] Exam: XR knee RT 3V* [id number] Date/Time of Exam: 07/09/2024 11:23 AM Reason For Exam: BILATERAL KNEE JOINT PAIN>3 MONTHS No fracture or dislocation. Advanced degenerative narrowing of the medial joint compartment of the kn ee. Moderate DJD of the patellofemoral joint. No significant joint effusion. XR/XR knee RT 3V* [id number] IMPRESSION: 1. Moderately advanced DJD of the knee as detailed above.
== END 2024-07-09 11:01 | disposition home or self-care (01) ==
PROVIDERS: PCP Family Medicine; Visit Provider Family Medicine
DX: M25.561 Pain in right knee; M25.562 Pain in left knee; M17.0 Bilateral primary osteoarthritis of knee
CPT/HCPCS: 73562; 73590

== ENCOUNTER 2024-07-22 11:32 | Outpatient (CLI) | payer MEDICARE, SELFPAY | END 2024-07-22 11:33 | disposition home or self-care (01) | LOC: SPT 11:33 | PROVIDERS: PCP Family Medicine; Visit Provider Physician Assistant | DX: Z46.89 Encounter for fitting and adjustment of other specified devices (principal); M17.0 Bilateral primary osteoarthritis of knee | CPT/HCPCS: 97760; L1851 ==

== ENCOUNTER 2024-07-22 14:25 | Outpatient (CLI) | payer MEDICARE, SELFPAY ==
--- NOTE | 2024-07-22 14:37 | XR_ITS ---
WS: [id number] DEXA (DUAL ENERGY X-RAY ABSORPTIOMETRY) Bone mineral density was performed using a [employer] machine. HISTORY: osteoporosis screening COMPARISON: None available. Lumbar spine BMD (L1-L4): 1.181 g/cm2 T score: 0.0 Z score: 1.5 Total hip BMD: Left: 0.978 g/cm2. T score: -0.2 Z score: 1.1 Right: 0.939 g/cm2. T score: -0.5 Z score: 0.8 10 year probability of a major osteoporotic fracture is 9.6%. XR/XR DEXA axial skeleton* [id number] IMPRESSION: NORMAL BONE MINERAL DENSITY based upon the WHO classification for females.
== END 2024-07-22 14:26 | disposition home or self-care (01) ==
LOC: RAD 14:25
PROVIDERS: PCP Family Medicine; Visit Provider Family Medicine
DX: Z78.0 Asymptomatic menopausal state (principal); M25.561 Pain in right knee; M81.0 Age-related osteoporosis without current pathological fracture; M25.562 Pain in left knee; Z13.820 Encounter for screening for osteoporosis; M17.0 Bilateral primary osteoarthritis of knee
CPT/HCPCS: 20610; 73560; 73565; 77080; 99203; J3301

== ENCOUNTER 2024-10-26 10:37 | Outpatient (CLI) | payer MEDICARE, SELFPAY | END 2024-10-26 10:38 | disposition home or self-care (01) | LOC: SPT 10:37 | PROVIDERS: PCP Family Medicine; Visit Provider Physician Assistant | DX: Z46.89 Encounter for fitting and adjustment of other specified devices (principal); M17.0 Bilateral primary osteoarthritis of knee | CPT/HCPCS: L1851 ==

== ENCOUNTER → 2025-01-25 10:05 | Outpatient (BNVA) | payer MEDICARE, OTHER, SELFPAY | PROVIDERS: PCP Family Medicine; Visit Provider Physician Assistant | DX: M17.0 Bilateral primary osteoarthritis of knee (principal) | CPT/HCPCS: 73560; 73565; 99214 ==

== ENCOUNTER 2025-02-15 15:46 | Outpatient (CLI) | payer MEDICARE, SELFPAY ==
[2025-02-15 16:53] LABS: Basophils # 0.1 10^3/uL (0.0-0.1); Basophils % 0.8 %; Eosinophils # 0.1 10^3/uL (0.0-0.8); Eosinophils % 0.8 %; Hematocrit 39.7 % (36-47); Lymphocytes # 3.1 10^3/uL (0.8-4.8); Lymphocytes % 30.6 %; Mean Corpuscular HGB Conc 32.7 g/dL (30-55); Mean Corpuscular Hemoglobin 29.5 pg (27-33); Mean Corpuscular Volume 90.2 fl (85-98); Mean Platelet Volume 10.1 fL (7.4-10.4); Monocytes # 0.6 10^3/uL (0.2-0.9); Monocytes % 6.2 %; Neutrophils # 6.27 10^3/uL (1.8-7.7); Neutrophils % 61.3 %; Nucleated Red Blood Cells % 0 %; Platelet Count 290 10^3/cmm (157-399); Red Cell Distribution Width 13.2 % (12.1-15.1); White Blood Count 10.22 10^3/uL (3.29-11.43)
--- NOTE | 2025-02-15 17:00 | CT_ITS ---
WS: [id number] CT LEFT knee, noncontrast HISTORY: M17.0 - Bilateral primary osteoarthritis of knee TECHNIQUE: Protocol for LILIA total knee replacement has been obtained. This includes axial imaging through the LEFT hip, LEFT knee and LEFT ankle. DLP: 930.24 mGy.cm COMPARISON: Radiograph 01/25/2025 Hips: Degenerative air in the SI joints. No destructive bone lesions. Mild acetabular osteophytic ridging. No fractures. RIGHT adnexal mass measures 2.6 x 2.6 cm contains fat. This mass was also described in 2018 without change. This is most consistent with a dermoid. Mild diverticular disease in the sigmoid. LEFT knee: Advanced degenerative changes particularly involving the medial compartment. Osteophytic ridging. Joint space narrowing, no fracture. Small suprapatellar effusion. Mild muscle atrophy. LEFT ankle: Negative. CT/CT knee [facility] [id number] IMPRESSION: CT imaging provided for [facility] robotic total knee replacement.
[2025-02-15 17:36] LABS: Alanine Aminotransferase 9 U/L (0-33); Albumin Level 4.3 g/dL (3.5-5.2); Alkaline Phosphatase 101 U/L (35-105); Anion Gap 13.7 (5-19); Aspartate Amino Transferase 16 U/L (0-32); Blood Urea Nitrogen 14 mg/dL (8-23); Calcium 9.3 mg/dL (8.5-10.5); Carbon Dioxide 26 mmol/L (22-29); Chloride 105 mmol/L (98-107); Globulin 2.8 g/dL (1.3-4.6); Glomerular Filtration Rate 98.8 mL/min (90-130); Glucose 91 mg/dL (65-115); Osmolality Calculated 292 mOsm/kg (285-295); Potassium 3.7 mmol/L (3.5-5.1); Sodium 141 mmol/L (136-145); Total Bilirubin 0.5 mg/dL (0.15-1.2); Total Protein 7.1 g/dL (6.6-8.7)
[2025-02-15 17:40] LABS: Add Urine Microscopic? YES; Bilirubin Urine Neg (Negative); Blood Urine 2+ (Negative); Glucose Urine UA Norm (Normal); Ketones Urine Negative (Negative); Leukocyte Esterase Urine 2+ (Negative); Nitrate Urine Negative (Negative); Protein Urine Trace (Negative); Urine Appearance Slightly Cloudy (CLEAR); Urine Color Yellow (Yellow); Urobilinogen Urine Norm (Negative); pH Urine 5 (5-7)
[2025-02-15 17:42] LABS: Bacteria Urine 1+ /hpf; Mucus Urine TRACE /hpf; RBC Urine 0-4 /hpf (0-2); Squamous Epithelial Cell Urine 15-25 /hpf (0-5); Transitional Epi Cells Urine 0-4 /hpf
[2025-02-15 17:43] LABS: Add Urine Culture? Yes; Hyaline Casts Urine 0-4 /lpf
== END 2025-02-15 15:47 | disposition home or self-care (01) ==
LOC: RAD 15:49
PROVIDERS: PCP Family Medicine; Visit Provider Student in an Organized Health Care Education/Training Program
DX: M17.0 Bilateral primary osteoarthritis of knee (principal); Z01.818 Encounter for other preprocedural examination; M46.1 Sacroiliitis, not elsewhere classified; M25.752 Osteophyte, left hip; R19.09 Other intra-abdominal and pelvic swelling, mass and lump; K57.30 Diverticulosis of large intestine without perforation or abscess without bleeding; M25.762 Osteophyte, left knee; M62.562 Muscle wasting and atrophy, not elsewhere classified, left lower leg
CPT/HCPCS: 36415; 73700; 80053; 81001; 85025; 87086

== ENCOUNTER → 2025-02-16 10:16 | Outpatient (BNVA) | payer MEDICARE, SELFPAY | PROVIDERS: PCP Family Medicine; Visit Provider Family Medicine | DX: Z01.818 Encounter for other preprocedural examination (principal) | CPT/HCPCS: 93005 ==

== ENCOUNTER 2025-02-21 10:00 | Observation (INO) | payer MEDICARE, OTHER, SELFPAY ==
[2025-02-21] VITALS (13 sets, daily range): BP systolic 97–160; BP diastolic 44–89; PULSE 70–99; RESP 14–18; TEMP 36.1–36.9; O2SAT 92–99; BMI 26.5
[2025-02-21] MEDS: ketorolac 30 mg/mL INJ IVP (06:27)
[2025-02-21] MEDS: acetaminophen 1,000 MG/100 ML PIGGYBACK 400 MG IV ×3 (06:29→18:33)
[2025-02-21 06:30] LABS: Basophils # 0.1 10^3/uL (0.0-0.1); Eosinophils # 0.1 10^3/uL (0.0-0.8); Eosinophils % 1.5 %; Hematocrit 41.8 % (36-47); Lymphocytes # 2.8 10^3/uL (0.8-4.8); Mean Corpuscular HGB Conc 32.5 g/dL (30-55); Mean Corpuscular Hemoglobin 29.2 pg (27-33); Mean Corpuscular Volume 89.7 fl (85-98); Mean Platelet Volume 10.2 fL (7.4-10.4); Monocytes # 0.7 10^3/uL (0.2-0.9); Monocytes % 7.7 %; Neutrophils # 5.02 10^3/uL (1.8-7.7); Neutrophils % 57.5 %; Nucleated Red Blood Cells % 0 %; Platelet Count 310 10^3/cmm (157-399); Red Blood Count 4.66 10^6/uL (3.85-5.65); Red Cell Distribution Width 13.2 % (12.1-15.1); White Blood Count 8.74 10^3/uL (3.29-11.43)
[2025-02-21 06:43] LABS: Bacteria Urine None Seen /hpf; Hyaline Casts Urine 5.36 /lpf; RBC Urine 21-50 /hpf (0-2); Squamous Epithelial Cell Urine 0-5 /hpf (0-5); WBC Urine 0-5 /hpf (0-5)
[2025-02-21 06:47] LABS: Anion Gap 16.6 (5-19); Blood Urea Nitrogen 14 mg/dL (8-23); Calcium 9.1 mg/dL (8.5-10.5); Carbon Dioxide 24 mmol/L (22-29); Chloride 105 mmol/L (98-107); Creatinine Clr Calc Pharmacy 60.5904; Glomerular Filtration Rate 98.8 mL/min (90-130); Glucose 97 mg/dL (65-115); Osmolality Calculated 294 mOsm/kg (285-295); Potassium 3.6 mmol/L (3.5-5.1); Sodium 142 mmol/L (136-145)
--- NOTE | 2025-02-21 06:57 | W.PM.OPSUD ---
Surgery/Procedure H&P Update DATE OF PROCEDURE: February 21, 2025 DATE H&P PERFORMED: 01/25/25 H&P UPDATE INFORMATION: I have reviewed H&P completed within last 30 days, I have examined patient prior to procedure and No changes to prior documentation CHANGES TO PREVIOUS DOCUMENTATION: Patient is cleared the preoperative clearance process. She has been asymptomatic she did have a positive UA but was a contaminant per primary preoperative doc. At this point in time we had then placed a catheter preoperatively and have a current catheter obtained UA just to make sure UA is clean. Once clean we will proceed with surgical intervention. Patient understands agrees to current plan. All questions answered. Ready to proceed with a left total knee arthroplasty today. PREOP DIAGNOSIS: Left knee DJD PRIMARY INDICATION FOR PROCEDURE: Left knee DJD PLANNED PROCEDURE: Operation Date: 02/21/25 07:00 Proposed Procedures p Desean Robot Total Knee Arthroplasty(Left) - Thien Allen DO
[2025-02-21 06:59] LABS: Add Urine Microscopic? YES; Bilirubin Urine Neg (Negative); Blood Urine 3+ (Negative); Glucose Urine UA Norm (Normal); Ketones Urine 1+ (Negative); Leukocyte Esterase Urine Negative (Negative); Nitrate Urine Negative (Negative); Protein Urine Trace (Negative); Specific Gravity, Urine 1.025 (1.005-1.030); UA Slide Review UA Slide Review Perf; Urine Appearance Clear (CLEAR); Urine Color Yellow (Yellow); Urobilinogen Urine 1 mg/dL (Negative); pH Urine 5 (5-7)
[2025-02-21 07:00] LABS: Add Urine Culture? Yes; Mucus Urine 1+ /hpf
[2025-02-21] MEDS: sodium chloride 0.9% 1,000 ML 30 ML IV (07:00)
--- NOTE | 2025-02-21 07:00 | PC.NURSE ---
16 fr cath placed
[2025-02-21] MEDS: ceFAZolin 2,000 MG in sodium chloride 0.9% (plus) 50 ML 100 MG IV ×3 (07:01→23:58)
--- NOTE | 2025-02-21 07:10 | ANES.PREANE2 ---
Pre-Anesthetic Assessment Height/Weight: Height 1.6 m Weight 68.039 kg Temp Pulse Resp BP Pulse Ox O2 Del Method 98.2 F 78 18 160/84 99 Room Air 02/21/25 06:06 02/21/25 06:06 02/21/25 06:06 02/21/25 06:06 02/21/25 06:06 02/21/25 06:06 Preop Diagnosis: Left knee DJD Operation Date: 02/21/25 07:00 Proposed Procedures p Desean Robot Total Knee Arthroplasty(Left) - Thien Allen DO Last intake: Intake Last Liquid Date 02/20/25 Last Liquid Time 21:00 Last Solid Date 02/20/25 Last Solid Time 18:00 Social No alcohol and No tobacco Exam alert, oriented x 3, clear to auscultation bilaterally and regular rate & rhythm Airway Submandibular: within normal limits Cervical ROM: within normal limits Mallampati: Class II History/ROS No significant history except as noted CV/HEM Hypertension Metabolic Hyperlipidemia Anesthetic Plan ASA status: 2 Anesthesia: Regional (specify below) Other: SPINAL Medications/Allergies Home Medications ?Medication ?Instructions ?Recorded ?Confirmed ?Last Taken ?Type amlodipine 10 mg-benazepril 20 mg 1 cap PO DAILY 01/17/20 02/21/25 02/21/25 History capsule (Lotrel) losartan 100 mg tablet 100 mg PO DAILY 01/17/20 02/21/25 02/20/25 History right knee medial hot box checker brace #1 ea 07/22/24 02/16/25 Unknown Rx left medial hot box checker brace #1 ea 10/26/24 02/16/25 Unknown Rx atorvastatin 10 mg tablet (Lipitor) 10 mg PO DAILY 02/16/25 02/21/25 02/20/25 History Allergies Allergy/AdvReac Type Severity Reaction Status Date / Time Sulfa (Sulfonamide Allergy Mild Unknown Verified 02/21/25 05:59 Antibiotics) Current Medications Generic Name Dose Route Start Last Admin Trade Name Freq PRN Reason Stop Dose Admin Sodium Chloride 1,000 mls @ 30 mls/hr 02/21/25 07:00 02/21/25 07:00 Sodium Chloride 0.9% IV 30 mls/hr .Q24H ELZBIETA Administration PFSH Anesthesia Medical History Post-operative state Polyneuropathy, peripheral sensorimotor axonal Surgical History History of spinal surgery 03/16/[address] Robin. C3-C4, C4-C5 ACDFF Social History Smoking and tobacco/nicotine status: never used tobacco/nicotine Alcohol intake: never Substance/Drug Use: never Lives independently: Yes Household members: spouse Marital status: Current occupational status: disabled Data Anesthesia 02/21/25 06:15 02/21/25 06:15 Short CBC 02/21/25 Range/Units 06:15 WBC 8.74 (3.29-11.43) 10^3/uL Hgb 13.60 (11.27-16.99) g/dL Hct 41.8 (36-47) % MCV 89.7 (85-98) fl Plt Count 310 (157-399) 10^3/cmm Neut % (Auto) 57.5 % Neut # (Auto) 5.02 (1.8-7.7) 10^3/uL BMP 02/21/25 06:15 Sodium 142 Potassium 3.6 Chloride 105 Carbon Dioxide 24 BUN 14 Creatinine 0.6 Glucose 97 Calcium 9.1 Urine 02/21/25 Range/Units 06:15 Urine Color Yellow (Yellow) Urine Appearance Clear (CLEAR) Urine pH 5 (5-7) Ur Specific [place] 1.025 (1.005-1.030) Urine Protein Trace H (Negative) Urine Glucose (UA) Norm (Normal) Urine Ketones 1+ H (Negative) Urine Nitrate Negative (Negative) Urine Bilirubin Neg (Negative) Ur Leukocyte Esterase Negative (Negative) Urine RBC 21-50 H (0-2) /hpf Urine WBC 0-5 (0-5) /hpf Cardiac Studies: Sestamibi Stress Test (Cardiology) 10/07/22
[2025-02-21] MEDS: ROPivacaine 0.2% Premix 100 mL 200 MG INTRA-ARTI (08:14)
[2025-02-21] MEDS: EPINEPHrine 1 mg/mL INJ XX (08:15)
[2025-02-21] MEDS: ketorolac 30 mg/mL INJ XX (08:16)
[2025-02-21] MEDS: tranexamic acid 1,000 mg/10mL SDV 1000 MG XX (08:17)
--- NOTE | 2025-02-21 09:09 | P.BOP_ITS ---
Date of Procedure: 02/21/2025 Surgeon: Thien Allen DO Steward/Stewardess Third Class(s): Chris Allen PA-C Procedure(s) performed: Left total knee arthroplasty?Desean robotic assisted Findings of the procedure(s): Patient found to have left knee degenerative joint disease underwent procedure as planned without issues or complications Estimated blood loss: 25 mL Specimen(s) removed: Tibia femur and patellar bone cuts removed Post-operative diagnosis: Left knee DJD
--- NOTE | 2025-02-21 09:10 | PM.OP ---
Operative Report Date of procedure: February 21, 2025 Surgeon: Thien Allen DO Business Unit Manager: Chris Allen PA-C: PA was necessary for assistance in this case with leg positioning retraction and protection of neurovascular structures as well as assistance in implantation wound closure and dressing application. Procedure: Preoperative diagnosis: Left knee degenerative joint disease Post-op diagnosis: Same Procedure done: Left total knee arthroplasty, cemented?robotic assisted Desean Implants: David triathlon size 3 femur CR cemented?left David triathlon size? 3 tibia universal baseplate cemented [place] triathlon symmetric patella size 31 mm [place] triathlon polyethylene 10mm Surgeon: Thien Allen DO Estimated blood?loss: 25 mL Tourniquet 83 minutes IV fluids: 900 mL Urine output: 300 mL Complications: None Condition: stable Disposition: floor Brief History: Patient is a 69-year-old female with with chronic?left knee degenerative joint disease.? Patient has been worked up in the outpatient setting in the orthopedic office at this point time through shared decision making given? [id number] arthritis as well as failed conservative treatment, and pt would?like to proceed with a?left total knee arthroplasty.? Through shared decision making elected to proceed with surgical intervention for?left total knee arthroplasty with Desean robotic assisted.? We talked about continued conservative treatment and surgical intervention as far as the risk benefits complications alternatives surgical and nonsurgical treatment options.? At this point time understanding patient risks with surgery patient agrees to proceed with surgical intervention.? Once again? risk with surgery include but are not?limited to make it better make it worse blood clot, heart attack, stroke, on the table, infection, injury to nerves or vessels, persistent pain, arthrofibrosis, implant failure.? Understanding these risks patient agrees to proceed with surgical intervention consent was obtained in the preoperative holding area..? All questions answered. Procedure: Patient was seen and evaluated in the preoperative holding area.? Consent was reviewed and signed with patient with plan for?left total knee arthroplasty.? All questions answered.? Correct extremity marked.? Patient seen and evaluated by the anesthesia department and once cleared for surgery was taken back to the operative suite.? Patient was placed into a supine position on the OR table.? All bony prominences were well-padded.? Patient was appropriately secured to the bed.? Patient underwent anesthesia per the anesthesia department.? Patient received spinal anesthesia and? Duarte catheter was placed.? A nonsterile tourniquet was applied to the?left thigh.? At this point in time a final timeout performed.? Patient received appropriate preoperative antibiotics and TXA. Next the?left?lower extremity was then prepped and draped in standard orthopedic fashion. Esmarch tourniquet was used exsanguinate the?left?lower extremity.? Tourniquet was insufflated to 250 mmHg. A standard anterior incision was made over midline of the knee.? Sharp scalpel excision through skin and subcutaneous tissue full-thickness skin flaps were made.? Fascia was elevated off of the extensor retinaculum was stable with medial parapatellar arthrotomy was then made.? The performed standard sequential releases..? Immediately on entry into the joint patient was found to have severe eburnated bone and tricompartmental arthritic changes noted.? With significant osteophyte formation.? Next the the patella was then stuffed and the knee was then flexed.?? Krystle was placed superiorly around the anterior aspect of the femur this was freed of synovium and I subsequently then placed by 2 femur pins to establish my femur arrays for the Desean robot.? These were then placed bicortically and? femur array was then appropriately secured with appropriate visualization.? Next attention was turned towards the tibial rays.? These were then drilled sequentially bicortically in parallel fashion and intraincisional.? I then placed my guide as well as my tibial array on in place.? This was appropriately secured and had excellent visualization with the Desean robot.? Next the tibial checkpoint as well as femur checkpoint were then placed.? At this point time I then subsequently established my head center as well as my medial?lateral malleoli as well as my checkpoints.? Next utilizing standard Desean technology I then mapped out the appropriate points and confirmation points around the femur as well as the tibia in standard fashion.? Once this was then done I then removed all osteophytes in preparation for dynamic testing.? All osteophytes were removed as well as I removed the ACL and the PCL was excised due to its significant tearing and degeneration noted.? At this point time the knee was brought into full extension and we performed our standard evaluation of our gap balancing stressing his?ligaments and extension as well as flexion appropriate adjustments were made to have appropriate gap balancing in both flexion and extension.? This plan for final counts.? We get a preoperative plan evaluating our implants which was a size 3 femur and a size 3 tibia.? Next we brought in the Desean robot and sequentially made our femur cuts.? All excess bony cuts were then removed.? Finally we made our tibial cut.? Once this was done a standard PCL retractor was then placed into this position I excised the medial and?lateral meniscus.? The tibial cut was then subsequently removed all excess bony debris was removed.? I then utilized a?lamina [employer] lecturer and remove the posterior osteophytes.? At this point time sized the tibia and confirmed this was a size 3.? I utilized our blunt probe to establish rotation of tibial implant.? Once this was done I then placed my tibia size 3 trial in appropriate position and then subsequently placed tibial pins to hold this into place placed and trialed up to a size 10 mm poly as well as a size 3 femur which was appropriately impacted in place knee was then subsequently brought into extension. Trials were then assessed,? this was stable with varus valgus stress in extension as well as had symmetrical translation when brought into flexion demonstrating symmetrical gaps. I had excellent balance gaps in flexion and extension with varus and valgus stresses.? At this point I was satisfied with these implants these were then verified and opened on the back table size 3 tibia, size 3 femur,? size 10 mm polythickness.? We did confirm appropriate gap balancing and stresses as well as alignment utilizing? Desean and were satisfied with this plan.? ?At this point time with my trials in place I then towel clip the patella everted this made appropriate measurements subsequently utilizing freehand technique performed by patellar resurfacing this was confirmed to be appropriate resection and subsequently sized to be a 31 mm symmetric.? My drill peg guides were then clamped and appropriate position and appropriate position in the patella for appropriate tracking and parallel with the joint.? Pegs were drilled trial implant was placed and the knee was then subsequently ranged and found to have excellent patellar tracking.? Femur pegs were then drilled.? All checkpoints as well as guidepins and arrays were removed and appropriate counts made. Satisfied with our tibial placement rotation I then utilized the keel punch and prepped the tibia.? At this point time all of our trial implants were removed.? ? The wound bed? was thoroughly irrigated and dried and prepped for cementation.? Cement was mixed on the back table.? Once cement was ready this was then covered onto the tibia and the tibial baseplate was then impacted and all excess cement was removed.? Next the polyethylene was then impacted into place on the tibial baseplate.? Next cement was placed onto the femur as well as under the femur implants and impacted in to place and all excess cement was extruded and removed.? Knee was taken into full extension? to clear all excess cement was removed.? Warm saline was placed over the joint.? I then towel clip patella and dried for cementation. cemented the patella into place.? This was all clamped and the cement was allowed to cure.? Thorough irrigation performed with pulse?lavage.? I then placed my periarticular injection while the cement was curing.? Once cured the knee was taken through range of motion and had excellent stability and gaps were balanced in flexion and extension.? Tourniquet was then deflated. hemostasis satisfactory with electrocautery.? Next I then subsequently closed the capsule with Ethibond suture as well as a running strata fix suture.? Knee was then taken through range of motion 20 times.? Next the skin was then closed in?layered fashion of running stratifix sutures of deep and subcutenous tissue and skin.? ?closed in flexion and Prineo glue was then placed over the incision this allowed to cure.? Incision was covered with Silverlon, with ABDs soft roll and Carloz wrap.? Patient was then awakened from anesthesia and taken to PACU in stable condition. Disposition: Patient taken to PACU in stable condition will be admitted to the floor for pain control PT/OT weight-bear as tolerated?left?lower extremity dressing changes as needed, DVT prophylaxis. Pain control. Patient will receive appropriate postoperative antibiotics. patient will be seen today by the internal medicine team for medical management.? Patient will follow up with the office in 2 weeks.? Patient understands agrees with current plan.? All questions answered.
[2025-02-21] MEDS: midazolam 1 mg/mL INJ 2 mL 2 MG IVP (09:42)
--- NOTE | 2025-02-21 09:43 | XRR_ITS ---
PROCEDURE INFORMATION: Exam: XR Left Knee Exam date and time: 02/21/2025 9:41 AM Age: 69 years old Clinical indication: Device placement; Joint replacement hardware; Prior surgery; Surgery date: Post-operative (0-2 days); Surgery type: Post L tka; Additional info: Post L tka, do in pacu TECHNIQUE: Imaging protocol: Radiologic exam of the left knee. Views: 1 or 2 views. AP and Lateral COMPARISON: CT knee LT LILIA [id number] 02/15/2025 4:18 PM FINDINGS: Bones/joints: Total left knee prosthesis appears well aligned. Air and fluid is identified within the joint space. Diffusely decreased bone density. Adjacent bony structures appear otherwise unremarkable. Soft tissues: Adjacent soft tissue edema, postsurgical changes and air is demonstrated. Other findings: External artifact overlies the area of interest. Limited study. Notes: If there is further concern, recommend follow-up radiographs or MRI for complete assessment. XR/XR knee LT 1-2V [id number] IMPRESSION: Expected postsurgical changes after a recent total left knee replacement. This can serve as a baseline study.
--- NOTE | 2025-02-21 10:05 | PM.PACU ---
PACU note Narrative: Patient is a 69-year-old female that just underwent a left total knee arthroplasty. Pt transferred to PACU in stable condition. Dressing is dry. pt is awake and alert. Patient can slightly wiggle toes. Distal pulses are palpable toes are warm and well-perfused. Cap refill is normal and under 2 seconds. Unable to perform any further assessment of motor or sensation due to residual anesthesia block. Exam: awake Disposition: admitted
--- NOTE | 2025-02-21 10:18 | PM.CONSULT ---
Providers/Reason For Consult Consulting Physician/Specialty*: Frase/Hospitalist Reason for Consult*: Hypertension, Hyperlipidemia, pain right leg (non-operative) Requesting Physician: Dr Allen Attending Physician: Thien Allen DO Primary Care Provider: Dallas Evans MD History of Present Illness History of Present Illness Chela Winston is a 69 year old female who presented to [facility] on the day of admission for an elective left total knee replacement by Dr. Allen. She did well in the immediate perioperative timeframe. After arrival to the PACU however she began to complain of severe pain in her right, nonoperative lower extremity. She received some fentanyl and Versed and rested for a little bit but really no improvement in degree of pain in the right leg. In talking with her she always has fairly severe pain in both lower extremities anywhere from 8-10 out of 10. The pain is throughout the right leg. Not really muscle or bone it is just sharp burning pain that usually improves if she stands up and walks around or if she rubs the leg. At best pain will be 8 out of 10 and never better than that. She does not take any medication chronically for pain, tolerates it as able. She indicates she cannot stay in 1 position for very longer the pain will become unbearable as it is currently. Has a history of cervical spine surgery some years ago but no history of lumbar spine problems. Denies any back pain. Left lower extremity remains numb from anesthesia more so than right. Beyond the pain in the right leg no complaints of chest pain or difficulty breathing. No nausea. Vitals have been okay. Estimated blood loss was 25 mL during surgery. Her lives at home with her and plan is for home health once stable for discharge. Review of Systems General: Reports: Other (ROS as per HPI or as noted here) Const: Denies: fever(s) Card: Denies: chest pain Resp: Denies: dyspnea GI: Denies: abdominal pain, nausea, vomiting or change in bowel habits : Denies: difficulty voiding or hematuria Musc: Reports: extremity pain (RLE bothering her more than LLE currently, rub/stand helps); Denies: neck pain, back pain or muscle cramps Neuro: Reports: numbness in extremities (Both lower extremities currently after anesthesia, no numbness otherwise); Denies: frequent falls Jimmy/Lymph: Denies: easy bruising or easy bleeding Medications/Allergies Home Medications ?Medication ?Instructions ?Recorded ?Confirmed ?Last Taken ?Type losartan 100 mg tablet 100 mg PO DAILY 01/17/20 02/21/25 02/20/25 History right knee medial engineering executive brace #1 ea 07/22/24 02/16/25 Unknown Rx left medial engineering executive brace #1 ea 10/26/24 02/16/25 Unknown Rx atorvastatin 10 mg tablet (Lipitor) 10 mg PO DAILY 02/16/25 02/21/25 02/20/25 History amlodipine 5 mg tablet 5 mg PO DAILY 02/21/25 02/21/25 02/21/25 History Allergies Allergy/AdvReac Type Severity Reaction Status Date / Time Sulfa (Sulfonamide Allergy Mild Unknown Verified 02/21/25 05:59 Antibiotics) Current Medications Generic Name Dose Route Start Last Admin Trade Name Freq PRN Reason Stop Dose Admin Sodium Chloride 1,000 mls @ 30 mls/hr 02/21/25 07:00 02/21/25 07:00 Sodium Chloride 0.9% IV 30 mls/hr .Q24H [id number] Administration PFSH Acute PFSH: Medical History (Updated 02/21/25 @ 12:22 by Jacqui Escalera MD) Cervical disc disorder with myelopathy of mid-cervical region Osteoarthritis of knees, bilateral 3 para 3 History of TIA (transient ischemic attack) Hyperlipidemia Hypertension Polyneuropathy, peripheral sensorimotor axonal Surgical History (Updated 02/21/25 @ 10:24 by Jacqui Escalera MD) Status post total left knee replacement using cement (02/21/25) Desean Munoz assisted History of spinal surgery 03/16/[address] Robin. C3-C4, C4-C5 ACDFF Social History Smoking and tobacco/nicotine status: never used tobacco/nicotine Alcohol intake: never Substance/Drug Use: never Lives independently: Yes Household members: spouse Marital status: Current occupational status: disabled Vitals/I&O/Wt Last Vital Signs Temp 97.0 F L 02/21/25 10:08 Pulse 97 02/21/25 10:08 Resp 18 02/21/25 10:08 BP 122/62 02/21/25 10:08 Pulse Ox 93 02/21/25 10:08 O2 Del Method Nasal Cannula 02/21/25 10:08 O2 Flow Rate 2 02/21/25 10:08 02/20/25 02/21/25 02/21/25 22:59 06:59 14:59 Intake Total 100 / 100 50 / 50 Output Total 325 / 325 Balance 100 / 100 -275 / -275 Weight last 48 hrs Weight 68.039 kg Physical Exam Narrative: Patient is awake and alert. Able to provide history. Looks uncomfortable due to degree of pain, restless. Pharmacological attempts at pain control were not relieving for her. At the bedside with physical therapy and nursing staff assisting with getting up out of bed to a standing position with the help of a walker and belt. Pain in the right lower extremity improved with bearing of weight and being upright. This was visible and facial expressions as well as verbally relayed. Required multiperson assist due to postoperative status and was not able to stand for long period face is symmetric. Speech clear. Lungs clear to auscultation bilaterally. Regular rate and rhythm. Abdomen is soft. Woodruff catheter is noted. Able to move right lower extremity. Both lower extremities are numb consistent with spinal anesthesia. Minimal movement left lower extremity. Dressings are in place and intact to left lower extremity. Handgrip is equal. Urinary Catheter Management: Woodruff: Cath Placed During This Visit: no Data 02/21/25 06:15 02/21/25 06:15 A&P Assessment and plan (1) Status post total left knee replacement using cement: POD 0 from surgery as per Dr Allen. Did well in terms of surgery. Is having significant pain in the right lower extremity that is difficult to control. - Spinal anesthesia - Pain control for postsurgical pain; will have to be careful not to overmedicate as baseline pain is always 8-10 with acceptable pain level 8-9. Pain and nonsurgical leg most relieved by standing rather than medication - On cefazolin post-op regimen - Has woodruff with orders to remove - Has SCDs and orders for eliquis to start in am - Stool softeners, laxatives as needed - PT/OT to see, discussed with PT need for more frequent out of bed to stand for pain management - Plan is for home with home health tomorrow if remains stable (2) Right leg pain: Postoperatively complaining of severe pain in the right lower extremity. In talking with her this pain is not new. She has pain in both lower extremities all the time that rates anywhere from an 8-10 out of 10 and rarely if ever below that. It is a sharp pain in the upper and lower leg, including knee but not involving the hip/pelvis. Pain is not necessarily musculoskeletal meaning that she does not feel that it is muscle or bone pain. Does not take medications for this chronically, typically will stand up and have improvement in the pain to her baseline. She has no history of known lumbar disease. Does have a history of polyneuropathy, though sounds more upper extremities/cervical in nature previously. No known history of diabetes. In the PACU pain not improved by fentanyl and Versed though she did rest for a while. Pain most improved by standing with assistance of PT and nursing staff. At its best pain will be 8 out of 10 at baseline. Given distribution in both lower extremities and burning, sharp pain primary differential is lumbar lesion versus neuropathic pain. No reports of bowel or bladder dysfunction. Denies any back pain or pelvic pain or groin pain. A component of osteoarthritis of the right knee also a contributing factor and she is due to eventually have right knee surgery as well. -Discussed with physical therapy in terms of need to get up as part of pain control regimen -Will have to be careful not to overmedicate for pain given baseline pain always 8-10. Patient's acceptable pain level 8-9. -Will start duloxetine and gabapentin given lack of response to traditional pain management options and more neuropathic presentation -Monitor closely for need for further acute evaluation (3) Hypertension: Chronically on amlodipine and losartan -Plan to resume usual amlodipine and half losartan tomorrow -Anticipate resuming home dose of losartan after discharge Qualifiers: Hypertension type: primary hypertension Qualified Code(s): I10 - Essential (primary) hypertension (4) Hyperlipidemia: Chronically on atorvastatin -Resume usual dose of atorvastatin tomorrow Qualifiers: Hyperlipidemia type: mixed hyperlipidemia Qualified Code(s): E78.2 - Mixed hyperlipidemia (5) History of spinal surgery: History of ACDFF C3-C4, C4-C5 -Aware Plan Abnormal urinalysis without symptoms of urinary tract infection Observation admission VTE prophylaxis: Eliquis to start in am; scds currently Antibiotics: perioperative ordered Pending studies: am labs Telemetry: not currently indicated Woodruff: orders to remove in place Line(s): peripheral IVs Disposition plan: Home with outpatient follow up and PT/OT as per discharge plan arranged prior to elective surgery Code Status: Full Code Supportive care otherwise Plans as noted were discussed with patient and she was given an opportunity to ask questions Reviewed with patient the need to be extra careful beyond what she would normally need to be postoperatively given degree of pain in her nonoperative right lower extremity and the fact that that pain is most relieved with standing. Discussed that quick movements are not advised and she needs to follow PT/OT recommendations. We also talked about risk of overmedicating given the severity of her discomfort at baseline and opting for nonpharmacological pain management when able which she was in agreement with. Did review starting duloxetine and gabapentin as pain control adjuncts. PDMP PDMP Reviewed: Last Reviewed 02/21/25 12:26 by Jacqui Escalera MD Consult Attestations Medical Necessity Statement: as per attending Coding Level of Care Code 54149 Moderate Time for a total of 65 minutes, includes reviewing past or interval history, examining/interviewing patient, placing orders, counseling patient/family/other support, discussing plan of care with staff, communicating with other healthcare providers and documenting encounter Diagnoses Status post total left knee replacement using cement Z96.652 Right leg pain M79.604 Primary hypertension I10 Hypertension type: primary hypertension Mixed hyperlipidemia E78.2 Hyperlipidemia type: mixed hyperlipidemia History of spinal surgery Z98.890
[2025-02-21] MEDS: lactated ringers 1,000 ML 75 ML IV (11:45)
[2025-02-21] MEDS: calcium carb-vit d 600mg/400unit 1 Tablet 1 EACH PO ×2 (11:45→18:33)
[2025-02-21] MEDS: gabapentin 100 mg Capsule PO ×2 (11:45→18:33)
[2025-02-21] MEDS: multivitamin therapeutic Tablet 1 TAB PO (11:45)
[2025-02-21] MEDS: iron polysaccharide complex 150 mg Capsule PO ×2 (11:45→18:33)
[2025-02-21] MEDS: duloxetine 30 mg Capsule PO (11:45)
[2025-02-21] MEDS: mupirocin oint 22 gm 1 APPLIC NASAL ×2 (11:45→18:33)
[2025-02-21] MEDS: docusate sodium 100 mg Capsule PO ×2 (11:45→18:33)
[2025-02-21] MEDS: chlorhexidine gluconate 0.12% Btl 473 mL 30 ML MUCOUS MEM ×2 (11:46→22:00)
--- NOTE | 2025-02-21 12:21 | PC.NURSE ---
Pt reports pain level always at an 8 before hospitalization.
--- NOTE | 2025-02-21 13:13 | ANE.PACU2 ---
Inpatient post-anesthesia follow up: Vital signs: Temperature 97.8 F Pulse Rate 70 Respiratory Rate 14 Blood Pressure 120/54 Pulse Oximetry 96 Oxygen Delivery Me thod Room Air Oxygen Flow Rate 2 Fraction of Inspir ed Oxygen Hydration adequate: Yes Nausea and vomiting: No Pain level: Actively managed due to baseline pre-existing neuropathic pain Mental status: Baseline
[2025-02-21] MEDS: ondansetron 2 mg/ML SDV 2 mL 4 MG IVP (16:12)
[2025-02-21] MEDS: tranexamic acid 1,000 MG/100 ML PREMIX 600 MG IV (16:43)
[2025-02-22] MEDS: HYDROmorphone 0.5 MG/0.5 ML INJ IVP (01:16)
[2025-02-22] MEDS: ondansetron 2 mg/ML SDV 2 mL 4 MG IVP (01:25)
[2025-02-22] MEDS: acetaminophen 1,000 MG/100 ML PIGGYBACK 400 MG IV (03:15)
[2025-02-22] MEDS: lactated ringers 1,000 ML 75 ML IV (03:16)
[2025-02-22 04:20] VITALS: BP 113/61; PULSE 58; TEMP 36.5; O2SAT 92
[2025-02-22 04:39] LABS: Basophils # 0.1 10^3/uL (0.0-0.1); Basophils % 0.5 %; Eosinophils # 0.1 10^3/uL (0.0-0.8); Eosinophils % 0.8 %; Hematocrit 35.7 % (36-47); Lymphocytes % 15.1 %; Mean Corpuscular HGB Conc 32.2 g/dL (30-55); Mean Corpuscular Hemoglobin 29.8 pg (27-33); Mean Corpuscular Volume 92.5 fl (85-98); Mean Platelet Volume 10.1 fL (7.4-10.4); Monocytes # 0.9 10^3/uL (0.2-0.9); Neutrophils # 10.05 10^3/uL (1.8-7.7); Neutrophils % 76.2 %; Nucleated Red Blood Cells % 0 %; Platelet Count 259 10^3/cmm (157-399); Red Blood Count 3.86 10^6/uL (3.85-5.65); Red Cell Distribution Width 13.3 % (12.1-15.1); White Blood Count 13.18 10^3/uL (3.29-11.43)
[2025-02-22 05:01] LABS: Anion Gap 14.2 (5-19); Blood Urea Nitrogen 12 mg/dL (8-23); Calcium 8.5 mg/dL (8.5-10.5); Carbon Dioxide 24 mmol/L (22-29); Chloride 104 mmol/L (98-107); Creatinine Clr Calc Pharmacy 60.5904; Glucose 115 mg/dL (65-115); Osmolality Calculated 287 mOsm/kg (285-295); Potassium 4.2 mmol/L (3.5-5.1); Sodium 138 mmol/L (136-145)
[2025-02-22] MEDS: ceFAZolin 2,000 MG in sodium chloride 0.9% (plus) 50 ML 100 MG IV (06:18)
[2025-02-22 06:27] VITALS: RESP 16
[2025-02-22] MEDS: oxyCODONE 5 mg IR Tab/Cap PO ×2 (06:27→13:26)
[2025-02-22] MEDS: ketorolac 30 mg/mL INJ 15 MG IVP (07:24)
[2025-02-22 09:45] VITALS: BP 122/67; PULSE 69; RESP 16; TEMP 36.4; O2SAT 96
[2025-02-22] MEDS: mupirocin oint 22 gm 1 APPLIC NASAL (09:50)
[2025-02-22] MEDS: chlorhexidine gluconate 0.12% Btl 473 mL 30 ML MUCOUS MEM (09:50)
[2025-02-22] MEDS: iron polysaccharide complex 150 mg Capsule PO (09:51)
[2025-02-22] MEDS: calcium carb-vit d 600mg/400unit 1 Tablet 1 EACH PO (09:51)
[2025-02-22] MEDS: docusate sodium 100 mg Capsule PO (09:51)
[2025-02-22] MEDS: amlodipine 5 mg Tablet PO (09:51)
[2025-02-22] MEDS: multivitamin therapeutic Tablet 1 TAB PO (09:51)
[2025-02-22] MEDS: apixaban 5 mg Tablet 2.5 MG PO (09:51)
[2025-02-22 09:52] VITALS: BP 122/68
[2025-02-22] MEDS: losartan 50 mg Tablet PO (09:52)
[2025-02-22] MEDS: ATORVASTATIN 10 MG TABLET PO (09:52)
[2025-02-22] MEDS: duloxetine 30 mg Capsule PO (09:53)
[2025-02-22] MEDS: gabapentin 100 mg Capsule PO (09:53)
--- NOTE | 2025-02-22 12:19 | P.DS_ITS ---
Discharge Providers Date of Admission: 02/21/25 10:00 Date of Discharge: February 22, 2025 Attending Provider at Admission: Thien Allen DO Attending Provider at Discharge: Thien Allen DO Consults: Dr. Escalera?hospitalist Primary Care Provider: Dallas Evans MD Diagnoses at Discharge Discharge Diagnosis (1) Status post total left knee replacement using cement: Status: Acute Permanent problem details: Desean Munoz assisted (2) Right leg pain: Status: Acute (3) Hypertension: Status: Acute Qualifiers: Hypertension type: primary hypertension Qualified Code(s): I10 - Essential (primary) hypertension (4) Hyperlipidemia: Status: Acute Qualifiers: Hyperlipidemia type: mixed hyperlipidemia Qualified Code(s): E78.2 - Mixed hyperlipidemia (5) History of spinal surgery: Status: Acute Permanent problem details: 03/16/[address] Robin. C3-C4, C4-C5 ACDFF Reason for Visit Reason for Visit: M17.0 Brief History: Status post left total knee arthroplasty?Desean robotic assisted Hospital Course Hospital Course Patient presented to the preoperative holding area with plan for left total knee arthroplasty after patient has been worked up in the outpatient setting for failed conservative treatment of [left] knee degenerative joint disease. Once cleared by anesthesia for surgery patient subsequently was taken back to the operative suite underwent anesthesia per anesthesia department and then subsequently underwent a [left] total knee arthroplasty. Procedure was performed without any complications patient was taken to PACU in stable condition patient recovered well in PACU and then was admitted to the floor po stoperatively internal medicine was consulted and on board for medical management and assistance with care. Patient received appropriate PT/OT, postoperative antibiotics, postoperative TXA, pain control, postoperative DVT prophylaxis. Elevation and ice. Patient encouraged for knee range of motion allowed weightbearing as tolerated to the operative lower extremity. Dressing was changed as needed, labs were monitored daily. Patient recovered well postoperatively and worked well and progressed well with therapy. It was determined on postoperative day 1 the patient was stable for discharge from an orthopedic standpoint and medicine. Patient was comfortable with discharge and plan was discharged home. Patient received appropriate discharge instructions as well as pain medication and DVT prophylaxis postoperatively. Given appropriate instructions for dressing management. Patient will follow-up with Dr. Allen/orthopedics in the office in 2 weeks. All questions answered. Understand if there is any issues questions or concerns and contact the office. Physical Exam Narrative: Left knee examination: Dressing on in place, clean dry and intact. No evidence of saturation. Patient has normal postoperative swelling and tenderness to palpation to the knee. Compartments are soft compressible,'s calf soft and nontender. Sensations intact to light touch distally. Distal pulses are palpable. Patient is able to wiggle toes as well as plantarflex and dorsiflex ankle. Urinary Catheter Management: Duarte: Cath Placed During This Visit: yes, but has since been removed by the nurse Reason for Continuing Indwelling Catheter: Decision to DC Catheter Date Urinary Catheter Removed: 02/21/25 Time Urinary Catheter Discontinued: 18:48 Discharge Data Studies Completed and Pending Completed Studies During Hospitalization Category Date Time Status XR knee LT 1-2V 54193 Routine Exams 02/21/25 09:43 Completed Pending at discharge Category Date Time Status Basic Metabolic Panel AM LABS Lab 02/23/25 04:00 Ordered Basic Metabolic Panel AM LABS Lab 02/24/25 04:00 Ordered Complete Blood Count w/Auto AM LABS Lab 02/23/25 04:00 Ordered Complete Blood Count w/Auto AM LABS Lab 02/24/25 04:00 Ordered Urine Culture Routine Lab 02/21/25 06:15 Results Radiology Impressions Knee X-Ray 02/21/25 09:43 IMPRESSION: Expected postsurgical changes after a recent total left knee replacement. This can serve as a baseline study. Laboratory Results WBC 13.18 10^3/uL (3.29-11.43) H 02/22/25 04:25 RBC 3.86 10^6/uL (3.85-5.65) 02/22/25 04:25 Hgb 11.50 g/dL (11.27-16.99) 02/22/25 04:25 Hct 35.7 % (36-47) L 02/22/25 04:25 MCV 92.5 fl (85-98) 02/22/25 04:25 MCH 29.8 pg (27-33) 02/22/25 04:25 MCHC 32.2 g/dL (30-55) 02/22/25 04:25 RDW 13.3 % (12.1-15.1) 02/22/25 04:25 Plt Count 259 10^3/cmm (157-399) 02/22/25 04:25 MPV 10.1 fL (7.4-10.4) 02/22/25 04:25 Neut % (Auto) 76.2 % 02/22/25 04:25 Lymph % (Auto) 15.1 % 02/22/25 04:25 George % (Auto) 7.0 % 02/22/25 04:25 Eos % (Auto) 0.8 % 02/22/25 04:25 Baso % (Auto) 0.5 % 02/22/25 04:25 Neut # (Auto) 10.05 10^3/uL (1.8-7.7) H 02/22/25 04:25 Lymph # (Auto) 2.0 10^3/uL (0.8-4.8) 02/22/25 04:25 George # (Auto) 0.9 10^3/uL (0.2-0.9) 02/22/25 04:25 Eos # (Auto) 0.1 10^3/uL (0.0-0.8) 02/22/25 04:25 Baso # (Auto) 0.1 10^3/uL (0.0-0.1) 02/22/25 04:25 Nucleated RBC % (auto) 0 % 02/22/25 04: Nucleated RBCs # 0.0 /100WBC 02/22/25 04:25 Sodium 138 mmol/L (136-145) 02/22/25 04:25 Potassium 4.2 mmol/L (3.5-5.1) 02/22/25 04:25 Chloride 104 mmol/L (98-107) 02/22/25 04:25 Carbon Dioxide 24 mmol/L (22-29) 02/22/25 04:25 Anion Gap 14.2 (5-19) 02/22/25 04:25 BUN 12 mg/dL (8-23) 02/22/25 04:25 Creatinine 0.5 mg/dL (0.5-0.9) 02/22/25 04:25 GFR Calculation 122.0 mL/min (90-130) 02/22/25 04:25 Glucose 115 mg/dL (65-115) 02/22/25 04:25 Calculated Osmolality 287 mOsm/kg (285-295) 02/22/25 04:25 Calcium 8.5 mg/dL (8.5-10.5) 02/22/25 04:25 Urine Color Yellow (Yellow) 02/21/25 06:15 Urine Appearance Clear (CLEAR) 02/21/25 06:15 Urine pH 5 (5-7) 02/21/25 06:15 Ur Specific Newton 1.025 (1.005-1.030) 02/21/25 06:15 Urine Protein Trace (Negative) H 02/21/25 06:15 Urine Glucose (UA) Norm (Normal) 02/21/25 06:15 Urine Ketones 1+ (Negative) H 02/21/25 06:15 Urine Blood 3+ (Negative) A 02/21/25 06:15 Urine Nitrate Negative (Negative) 02/21/25 06:15 Urine Bilirubin Neg (Negative) 02/21/25 06:15 Urine Urobilinogen 1 mg/dL (Negative) H 02/21/25 06:15 Ur Leukocyte Esterase Negative (Negative) 02/21/25 06:15 Urine RBC 21-50 /hpf (0-2) H 02/21/25 06:15 Urine WBC 0-5 /hpf (0-5) 02/21/25 06:15 Ur Squamous Epith Cells 0-5 /hpf (0-5) 02/21/25 06:15 Amorphous Sediment Not Reportable 02/21/25 06:15 Urine Bacteria None seen /hpf (NONE) 02/21/25 06:15 Hyaline Casts 5.36 /lpf 02/21/25 06:15 Urine Mucus 1+ /hpf 02/21/25 06:15 Blood Type O Positive 02/21/25 06:15 Rho(D) Type Rh positive 02/21/25 06:15 Antibody Screen Negative 02/21/25 06:15 Vitals Last Vital Signs Temp 97.6 F 02/22/25 09:45 Pulse 69 02/22/25 09:45 Resp 16 02/22/25 09:45 BP 122/68 02/22/25 09:52 Pulse Ox 96 02/22/25 09:45 O2 Del Method Room Air 02/22/25 09:45 O2 Flow Rate 2 02/21/25 10:08 Discharge Plan Discharge Patient Disposition: Home Condition: Stable Prescriptions: New Eliquis 2.5 mg tablet 2.5 mg PO BID 14 Days Qty: 28 0RF oxycodone 5 mg tablet 5 mg PO Q6H PRN (Reason: pain postop) 7 Days Qty: 28 0RF Continued losartan 100 mg tablet 100 mg PO DAILY (DME) right knee medial passenger elevator operator brace See Rx Instructions .Route .MEDSUPPLY Qty: 1 0RF Rx Instructions: As directed atorvastatin [Lipitor] 10 mg tablet 10 mg PO DAILY amlodipine 5 mg tablet 5 mg PO DAILY Discontinued (DME) left medial passenger elevator operator brace See Rx Instructions .Route .MEDSUPPLY Qty: 1 0RF Rx Instructions: As directed Discharge Orders: Discharge Order (Routine); Ordered 02/22/25 Ordered By: Thien Allen Other Ambulatory Orders: DME: Walker (Order) Location: None Selected Ordered By: Thien Allen Physical Therapy Eval and Treat Outpatient (Order) Timeframe: 3 Days Facility: [facility] - Location: Physical Therapy [place] Ordered By: Thien Allen Referrals: [facility] Outpatient Therapy [Outside] (We have notified your [place] [facility] (physcial therapy) of the need for a follow-up appointment to be scheduled. If you have not heard from them within the next 2 business days, please call them directly. ) Thien Allen DO [Physician] - 03/08/25 8:15 am Discharge Diet: Advance as tolerated Discharge Activity: Limit activity as instructed Patient Instructions: Apixaban (By mouth) (Eliquis), Acute Wound Care (DC), Precautions after Total Joint Replacement Surgery (GEN), Joint Replacement Surgery (GEN), Total Knee Replacement (GEN), Opioid Safety, Post Anesthesia Care Activity Restrictions/Additional Instructions: Ortho Discharge instructions: Keep incisions clean dry and intact, leave Silverlon bandage dressings on in place for 7 days after that may rinse incisions with warm soapy water pat dry and redress with a dry dressing/ new silverlon dressing Patient may weight-bear as tolerate to the operative extremity Utilize walker as needed Encourage knee range of motion Ice and elevate as needed for pain and swelling Take pain medication as prescribed Take antinausea medication as needed Pain medication can cause constipation. take [id number] stool softeners and or MiraLAX. Take prescribed Eliquis twice daily for the next 14 days for blood clot prevention May supplement for pain with Tylenol [id number] as needed(1000 mg every 8 hours-do not exceed more than 3000mg in 24-hour period) No baths or soaks Follow-up in the orthopedic office in 2 weeks Contact the office for any questions or concerns Discharge Attestations Time Spent in Discharge Care*: less than 30 min Quality Metrics Clinical Quality Measures [ No reported AMI, CVA or VTE this stay] Coding Level of Care Code Acute Code for Chg Fwd Diagnoses Status post total left knee replacement using cement Z96.652 Right leg pain M79.604 Primary hypertension I10 Hypertension type: primary hypertension Mixed hyperlipidemia E78.2 Hyperlipidemia type: mixed hyperlipidemia History of spinal surgery Z98.890
--- NOTE | 2025-02-22 13:13 | P.PN_ITS ---
Subjective 2 Subjective: Patient has some pain at the surgical site but otherwise feels well overall. States that she had some nausea after being administered hydromorphone earlier today but this resolved with Zofran. Hemoglobin stable postoperatively. Medications: Reviewed: Yes Vitals/I&O/Wt Last Vital Signs Temp 97.6 F 02/22/25 09:45 Pulse 69 02/22/25 09:45 Resp 16 02/22/25 09:45 BP 122/68 02/22/25 09:52 Pulse Ox 96 02/22/25 09:45 O2 Del Method Room Air 02/22/25 09:45 O2 Flow Rate 2 02/21/25 10:08 02/21/25 02/22/25 02/22/25 22:59 06:59 14:59 Intake Total 1000 / 2150 1050 / 3200 Output Total 400 / 725 400 / 1125 Balance 600 / 1425 650 / 2075 Weight last 48 hrs Weight 70.307 kg Weight 68.039 kg Weight 68.039 kg Physical Exam 2 Narrative: General: No acute distress, AO x3 HEENT: PERRLA, pupils bilaterally equal and reactive, pallors not present Chest: Normal vesicular breath sounds, no added sounds, equal good air entry bilaterally CVS: S1-S2 regular, no murmurs, no tachycardia, no gallops, no rubs Abdomen: Soft, nontender, no organomegaly, bowel sounds present Neuro: No focal deficits, no facial deformity, AO x3, power 5/5 in all limbs Urinary Catheter Management: Duarte: Cath Placed During This Visit: yes, but has since been removed by the nurse Reason for Continuing Indwelling Catheter: Decision to DC Catheter Date Urinary Catheter Removed: 02/21/25 Time Urinary Catheter Discontinued: 18:48 Data 02/22/25 04:25 02/22/25 04:25 Micro: Microbiology 02/21/25 06:15 Urine Culture - Preliminary Urine Catheterized A&P Assessment and plan (1) Status post total left knee replacement using cement: POD 0 from surgery as per Dr Allen. Did well in terms of surgery. Is having significant pain in the right lower extremity that is difficult to control. - Spinal anesthesia - Pain control for postsurgical pain; will have to be careful not to overmedicate as baseline pain is always 8-10 with acceptable pain level 8-9. Pain and nonsurgical leg most relieved by standing rather than medication - On cefazolin post-op regimen - Has kacy with orders to remove - Has SCDs and orders for eliquis to start in am - Stool softeners, laxatives as needed - PT/OT to see, discussed with PT need for more frequent out of bed to stand for pain management - Plan is for home with home health tomorrow if remains stable (2) Right leg pain: Postoperatively complaining of severe pain in the right lower extremity. In talking with her this pain is not new. She has pain in both lower extremities all the time that rates anywhere from an 8-10 out of 10 and rarely if ever below that. It is a sharp pain in the upper and lower leg, including knee but not involving the hip/pelvis. Pain is not necessarily musculoskeletal meaning that she does not feel that it is muscle or bone pain. Does not take medications for this chronically, typically will stand up and have improvement in the pain to her baseline. She has no history of known lumbar disease. Does have a history of polyneuropathy, though sounds more upper extremities/cervical in nature previously. No known history of diabetes. In the PACU pain not improved by fentanyl and Versed though she did rest for a while. Pain most improved by standing with assistance of PT and nursing staff. At its best pain will be 8 out of 10 at baseline. Given distribution in both lower extremities and burning, sharp pain primary differential is lumbar lesion versus neuropathic pain. No reports of bowel or bladder dysfunction. Denies any back pain or pelvic pain or groin pain. A component of osteoarthritis of the right knee also a contributing factor and she is due to eventually have right knee surgery as well. -Discussed with physical therapy in terms of need to get up as part of pain control regimen -Will have to be careful not to overmedicate for pain given baseline pain always 8-10. Patient's acceptable pain level 8-9. -Will start duloxetine and gabapentin given lack of response to traditional pain management options and more neuropathic presentation -Monitor closely for need for further acute evaluation (3) Hypertension: Chronically on amlodipine and losartan -Plan to resume usual amlodipine and half losartan tomorrow -Anticipate resuming home dose of losartan after discharge Qualifiers: Hypertension type: primary hypertension Qualified Code(s): I10 - Essential (primary) hypertension (4) Hyperlipidemia: Chronically on atorvastatin -Resume usual dose of atorvastatin tomorrow Qualifiers: Hyperlipidemia type: mixed hyperlipidemia Qualified Code(s): E78.2 - Mixed hyperlipidemia (5) History of spinal surgery: History of ACDFF C3-C4, C4-C5 -Aware Plan Abnormal urinalysis without symptoms of urinary tract infection Observation admission VTE prophylaxis: Eliquis to start in am; scds currently Antibiotics: perioperative ordered Pending studies: am labs Telemetry: not currently indicated Duarte: orders to remove in place Line(s): peripheral IVs Disposition plan: Home with outpatient follow up and PT/OT as per discharge plan arranged prior to elective surgery Code Status: Full Code Supportive care otherwise Plans as noted were discussed with patient and she was given an opportunity to ask questions Reviewed with patient the need to be extra careful beyond what she would normally need to be postoperatively given degree of pain in her nonoperative right lower extremity and the fact that that pain is most relieved with standing. Discussed that quick movements are not advised and she needs to follow PT/OT recommendations. We also talked about risk of overmedicating given the severity of her discomfort at baseline and opting for nonpharmacological pain management when able which she was in agreement with. Did review starting duloxetine and gabapentin as pain control adjuncts. February 22, 2025: Complains of some post op pain but otherwise feels okay. She has been up with physical therapy today. States right leg pain is back to her baseline. Nauseous after hydropmorphone this morning but resolved with zofran. Tolerating lunch currently. Stable for discharge from a medicine standpoint. resume home meds at discharge. PDMP PDMP Reviewed: Not Reviewed Attestations 2 Medical Necessity Statement*: per admitting Coding Level of Care Code Acute Code for Chg Fwd Diagnoses Status post total left knee replacement using cement Z96.652 Right leg pain M79.604 Primary hypertension I10 Hypertension type: primary hypertension Mixed hyperlipidemia E78.2 Hyperlipidemia type: mixed hyperlipidemia History of spinal surgery Z98.890
[2025-02-22 13:26] VITALS: RESP 16
[2025-02-22 13:35] VITALS: BP 123/60; PULSE 73; RESP 16; TEMP 36.4; O2SAT 96
== END 2025-02-22 14:00 | disposition home or self-care (01) ==
LOC: OBGYN 10:01
PROVIDERS: Physician Assistant; Admitting Provider Student in an Organized Health Care Education/Training Program; PCP Family Medicine; Visit Provider Student in an Organized Health Care Education/Training Program
PROC: 8E0Y0CZ Robotic Assisted Procedure of Lower Extremity, Open Approach (ICD-10-PCS; CPT 27447; principal; 2025-02-21 07:00)
DX: M17.12 Unilateral primary osteoarthritis, left knee (principal); M79.604 Pain in right leg; I10 Essential (primary) hypertension; E78.2 Mixed hyperlipidemia; Z98.1 Arthrodesis status
CPT/HCPCS: 27447; 20985; 36415; 73560; 80048; 81001; 85025; 86850; 86900; 87086; 97110; 97116; 97161; 97165; A4216; C1713; C1776; G0378; J0131; J0171; J0690; J1171; J1885; J2250; J2371; J2405; J2704; J2795; J3010; J7030; J7120; J9999; L8699

== ENCOUNTER 2025-02-28 14:48 | Outpatient (RCR) | payer MEDICARE, OTHER, SELFPAY | END 2025-03-09 23:59 | disposition home or self-care (01) | LOC: SPT 14:48 | PROVIDERS: Visit Provider Student in an Organized Health Care Education/Training Program | DX: Z47.1 Aftercare following joint replacement surgery (principal); Z96.652 Presence of left artificial knee joint | CPT/HCPCS: 97110; 97162 ==

== ENCOUNTER → 2025-03-08 08:01 | Outpatient (BNVA) | payer MEDICARE, OTHER, SELFPAY | PROVIDERS: PCP Family Medicine; Visit Provider Physician Assistant | DX: Z96.652 Presence of left artificial knee joint (principal); Z98.890 Other specified postprocedural states | CPT/HCPCS: 73560; 73565; 99024 ==

== ENCOUNTER 2025-03-10 05:00 | Outpatient (RCR) | payer MEDICARE, OTHER, SELFPAY | END 2025-04-09 23:55 | disposition home or self-care (01) | LOC: SPT 05:00 | PROVIDERS: PCP Family Medicine; Visit Provider Student in an Organized Health Care Education/Training Program | DX: Z47.1 Aftercare following joint replacement surgery (principal); Z96.652 Presence of left artificial knee joint | CPT/HCPCS: 97110 ==

== ENCOUNTER → 2025-04-19 08:41 | Outpatient (BNVA) | payer MEDICARE, OTHER, SELFPAY | PROVIDERS: PCP Family Medicine; Visit Provider Physician Assistant | DX: Z96.652 Presence of left artificial knee joint (principal) | CPT/HCPCS: 73560; 73565; 99024 ==

== ENCOUNTER → 2025-05-17 10:01 | Outpatient (BNVA) | payer MEDICARE, OTHER, SELFPAY | PROVIDERS: PCP Family Medicine; Visit Provider Student in an Organized Health Care Education/Training Program | DX: Z96.652 Presence of left artificial knee joint (principal) | CPT/HCPCS: 73560; 73565; 99213 ==

== ENCOUNTER → 2025-07-19 12:48 | Outpatient (BNVA) | payer MEDICARE, OTHER, SELFPAY | PROVIDERS: PCP Family Medicine; Visit Provider Student in an Organized Health Care Education/Training Program | DX: Z96.652 Presence of left artificial knee joint (principal); M17.0 Bilateral primary osteoarthritis of knee; M76.32 Iliotibial band syndrome, left leg | CPT/HCPCS: 73560; 73565; 99213 ==

== ENCOUNTER 2025-07-25 13:00 | Outpatient (RCR) | payer MEDICARE, OTHER, SELFPAY | END 2025-07-25 15:18 | disposition home or self-care (01) | LOC: SPT 13:00 | PROVIDERS: Visit Provider Student in an Organized Health Care Education/Training Program | DX: M76.32 Iliotibial band syndrome, left leg (principal) | CPT/HCPCS: 97161 ==